=== PATIENT | male | born 1960 | race Caucasian/White ===

== ENCOUNTER 2023-05-13 13:47 | Outpatient (AMB) | payer MEDICARE, MEDICAID, SELFPAY ==
--- NOTE | 2023-05-13 14:17 | MHC.OFFVIS ---
Intake Intake Visit Reasons: specified disorders of prostate Intake Note: New Patient presents for initial visit for weak urinary stream and erectile dysfunction Urology Medications: tamsulosin Blood Thinner: aspirin PVR: 25ml's Print Producer Required: No Accompanied by: Self / Same As Patient Allergies No Known Allergies Allergy (Verified 05/13/23 15:23) Medication List - Last Reconciled 05/13/23 by JACQUES PetersenP- aspirin 81 mg PO DAILY atorvastatin 20 mg PO DAILY omeprazole 40 mg PO DAILY tadalafil 20 mg PO .prn PRN 30 days tamsulosin 0.4 mg PO DAILY 90 days HPI HPI Comments History of Present Illness Details Kali is a 62-year-old male patient. He has a past medical history of anxiety, hypercholesteremia, posterior circulation stroke, and cervical radiculopathy. He presents to the office today as a new patient for ongoing lower urinary tract symptoms. In discussion with the patient today he reports noting over the last 6 months to be having weak urinary stream and urinary hesitancy. He also discusses having had issues obtaining and maintaining erections. When asked he reports no sexual desire. Discussed at length potential causes of erectile dysfunction as well as lower urinary tract symptoms. He reports having followed up with his PCP at which time DUDLEY was performed and no abnormalities were noted and he was started on Flomax. He does report improvement in lower urinary tract symptoms symptoms on 0.4 mg of Flomax daily. When asked he denies incontinence, nocturia, hematuria, dysuria, foul smelling urine, flank pain, fever, and or chills. Discussed obtaining labs and retroperitoneal ultrasound for further assessment evaluation. He otherwise offers no other issues or concerns at time. 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 ENT Reports no additional complaints Card Reports as per HPI Resp Reports no additional complaints GI Reports no additional complaints Reports as per HPI Musc Reports as per HPI Neuro Reports as per HPI Psych Reports no additional complaints Endo Reports no additional complaints Master/Lymph Reports no additional complaints Aller/Immun Reports no additional complaints Physical Exam Const General: cooperative, healthy appearing, comfortable, no acute distress, well developed, alert and awake Orientation/consciousness: patient oriented x3 Limitations: no limitations HEENT Head: Yes normal to inspection, Yes normocephalic and Yes atraumatic Ears: hearing grossly normal bilaterally Eyes General: appearance normal, both eyes and all related structures Neck Neck: Yes normal visual inspection and Yes trachea midline Chest Chest palpation & inspection: normal inspection of the chest Resp Effort & Inspection: normal respiratory effort and able to speak in complete sentences Cardio Rate: regular rate GI Inspection: Yes normal to inspection General: Yes no CVA tenderness Back/Spine/Pelvis Back: no CVA tenderness Skin General skin exam: no rashes or lesions noted Neuro General: patient oriented x3 Extrem General: Yes normal to inspection Psych Appearance: grossly normal and well kempt Mental Status: mental status grossly normal Speech and movement: Normal speech and movement present and Clear speech present Affect: normal affect Attitude: cooperative Thought process: Normal thought process present Thought content: Normal thought content present Insight: Fair insight present (Psych) Judgement: Fair judgement present (Psych) Office Procedures Post Void Residual Post Residual Void Post Void Residual (PVR): 25 [id number] Void Residual by ultrasound Assessment & Plan Assessment & Plan (1) Lower urinary tract symptoms: Code(s): R39.9 - Unspecified symptoms and signs involving the genitourinary system (2) Erectile dysfunction: Code(s): N52.9 - Male erectile dysfunction, unspecified (3) Low libido: Code(s): R68.82 - Decreased libido Plan Unable to obtain urine for urinalysis today however PVR 25 mL. Continue Flomax as discussed and prescribed. Discussed obtaining retroperitoneal ultrasound for further assessment evaluation. Will obtain PSA for further assessment evaluation. Prescription provided for as needed Cialis Will obtain testosterone free and total for further assessment evaluation. Discussed at length lifestyle modifications to assist with lower urinary tract symptoms as well as erectile dysfunction. Follow-up in 2-3 months with imaging and labs to be completed prior; or sooner with any issues, concerns, and or questions. Orders: Orders US retroperitoneal comp Today R39.9 - Unspecified symptoms and signs involving the genitourinary system AMB Urinalysis Automated Today Z13.9 - Encounter for screening, unspecified AMB Post Void Residual by ultrasound Today Z13.9 - Encounter for screening, unspecified Prostate Specific Antigen Today N40.0 - Benign prostatic hyperplasia without lower urinary tract symptoms Testosterone, Free/Total Today N52.9 - Male erectile dysfunction, unspecified, R68.82 - Decreased libido Medications: New tamsulosin 0.4 mg PO DAILY 90 days 90 caps 0RF tadalafil Take 1 hour prior to sexual activity as needed 20 mg PO .prn 30 days PRN 10 tabs 2RF sexual activity Patient Instructions: The patient had an opportunity to ask questions regarding the treatment plan. All questions were answered. Physical exam, labs, and imaging were discussed and reviewed in detail. As well as risks, benefits, and discussion of treatment choices. No major barriers to understanding were identified. The patient expressed understanding and agreement with the above treatment plan. The patient was made aware they should contact our office by phone for worsening of their current condition, the appearance of new symptoms, or with any questions or concerns. Compliance is encouraged with any medications and follow up testing that is ordered. It is a privilege to be allowed the opportunity to participate in? your urological care.? Again, if you have any questions or concerns If you have any questions or concerns please do not hesitate to contact me. The office is [phone]. This note is constructed using voice recognition software. While every effort has been made to ensure accuracy firearms instructor errors may have been included. Yours sincerely, ARCELIA Petersen- Coding Level of Care Code New Pt Level 4 (25973) Diagnoses Lower urinary tract symptoms R39.9 Erectile dysfunction N52.9 Low libido R68.82 CPT Codes Post Residual Void - PVR CPT Code: 14953-Lxky Void Residual by ultrasound ([id number])
== END 2023-05-13 15:12 | disposition home or self-care (01) ==
PROVIDERS: Visit Provider Nurse Practitioner Family
DX: R39.9 Unspecified symptoms and signs involving the genitourinary system (principal); N52.9 Male erectile dysfunction, unspecified; R68.82 Decreased libido
CPT/HCPCS: 99204

== ENCOUNTER → 2023-05-13 13:47 | Outpatient (BNVA) | payer MEDICARE, MEDICAID, SELFPAY | PROVIDERS: Visit Provider Nurse Practitioner Family | DX: R39.9 Unspecified symptoms and signs involving the genitourinary system (principal); N52.9 Male erectile dysfunction, unspecified; R68.82 Decreased libido | CPT/HCPCS: 51798; 99202 ==

== ENCOUNTER 2023-06-15 07:52 | Outpatient (REF) | payer MEDICARE, MEDICAID, SELFPAY ==
[2023-06-15 11:17] LABS: Prostate Specific Antigen 0.37 ng/mL (<0.05-4.0)
[2023-06-19 14:19] LABS: Testosterone, Free 76.4 pg/mL (35.0-155.0); Testosterone, Total 583 ng/dL (250-1100)
== END 2023-06-15 07:53 | disposition home or self-care (01) ==
LOC: HO.10HDL 07:52
PROVIDERS: Visit Provider Nurse Practitioner Family
DX: Z12.5 Encounter for screening for malignant neoplasm of prostate (principal); N40.0 Benign prostatic hyperplasia without lower urinary tract symptoms; R68.82 Decreased libido; N52.9 Male erectile dysfunction, unspecified
CPT/HCPCS: 36415; 84153; 84402; 84403

== ENCOUNTER 2023-07-02 13:48 | Outpatient (REF) | payer MEDICARE, MEDICAID, SELFPAY ==
--- NOTE | ~2023-07-02 | US_ITS ---
EXAMINATION: US RETROPERITONEAL COMPLETE (RENAL) CLINICAL INFORMATION: Lower urinary tract symptoms. COMPARISON: None available. TECHNIQUE: Real-time imaging of the kidneys and bladder. FINDINGS: RIGHT KIDNEY: 11.8 x 4.8 x 3.3 cm (SAG x AP x TRV). The kidney is normal in size, contour, and echogenicity. Renal cortical thickness is normal. No calculi or focal parenchymal lesions. No hydronephrosis. LEFT KIDNEY: 11.5 x 5.4 x 4.8 cm (SAG x AP x TRV). The kidney is normal in size, contour, and echogenicity. Renal cortical thickness is normal. No calculi or focal parenchymal lesions. No hydronephrosis. BLADDER: Well distended and normal. Bilateral ureteral jets are demonstrated. Prevoid bladder volume is 248.2 mL. Postvoid bladder volume is 21.3 mL. ADDITIONAL FINDINGS: The prostate measures 33 mL. US/US retroperitoneal comp IMPRESSION: Enlarged prostate. Normal-appearing urinary bladder. No hydronephrosis.
== END 2023-07-02 13:49 | disposition home or self-care (01) ==
LOC: HO.US 13:48
PROVIDERS: Visit Provider Nurse Practitioner Family
DX: R39.9 Unspecified symptoms and signs involving the genitourinary system (principal)
CPT/HCPCS: 76770

== ENCOUNTER 2023-07-13 13:18 | Outpatient (AMB) | payer MEDICARE, MEDICAID, SELFPAY ==
--- NOTE | 2023-07-13 13:23 | MHC.OFFVIS ---
Intake Visit Reasons: 2m/US/labs(SET) Intake Note: Patient presents for follow up visit for weak urinary stream, erectile dysfunction, ultrasound and lab results Imagin07/02/23 Testosterone: 583, Free Testosterone: 76.4, PSA: 0.37 Urology Medications: tamsulosin and tadalafil Blood Thinner: aspirin PVR: 0ml's Ticket Collector Or Usher Required: No Accompanied by: Self / Same As Patient Allergies No Known Allergies Allergy (Verified 07/13/23 20:20) Medication List - Last Reconciled 07/13/23 by ARCELIA Petersen- aspirin 81 mg PO DAILY atorvastatin 20 mg PO DAILY omeprazole 40 mg PO DAILY tadalafil (Cialis) 5 mg PO DAILY 90 days tadalafil 10 - 20 mg (0.5 - 1 x 20 mg) PO .prn PRN 30 days HPI Comments Details: Kali is a 62-year-old male patient. He has a past medical history of anxiety, hypercholesteremia, posterior circulation stroke, memory difficulty, and cervical radiculopathy. He presents to the office today for follow-up. Of note, patient was seen approximately 2 months ago as a new patient for ongoing lower urinary tract symptoms and erectile dysfunction at which time a retroperitoneal ultrasound was ordered, labs, and trial of on demand Cialis with Flomax was initiated. In discussion with the patient today he reports to be doing and feeling well. He reports feeling since his last office visit here approximately 2 months ago he has not been experiencing lower urinary tract symptoms as he had been. He denies having trialed Cialis on demand for his ED as he spoke with his partner and she does not feel this is necessary. However, he does continue to report erectile dysfunction. Recent retroperitoneal ultrasound results reviewed with the patient today. Bilateral kidneys with no calculi, lesions, and or hydronephrosis. The bladder is well distended and normal. Bilateral ureteral jets are demonstrated. Pre void bladder volume is approximately 250 mL. Postvoid bladder volume is approximately 20 mL. The prostate measures approximately 33 mL. Recent testosterone, free testosterone, and PSA results reviewed with the patient today as noted and trended below: PSA 06/30 0.4 Total testosterone 06/30 583 Free testosterone 06/30 76.4 Although he had been reporting weak urinary stream and urinary hesitancy he reports this has since subsided. He currently denies any bothersome urinary issues or concerns. He denies urinary urgency, urinary frequency, incontinence, nocturia, hematuria, dysuria, foul smelling urine, changes to urinary stream, flank pain, fever, and or chills. He is happy with his current voiding parameters. In office urinalysis results reviewed with the patient today. PVR 0 mL. PFSH Medical History Memory difficulty Anxiety Hypercholesteremia Achalasia Posterior circulation stroke Cervical radiculopathy Surgical History History of arthroscopy History of back surgery Review of Systems Const Reports no additional complaints Eyes Details: 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 ENT Reports no additional complaints Card Reports as per HPI Resp Reports no additional complaints GI Reports no additional complaints Reports as per HPI Musc Reports as per HPI Neuro Reports as per HPI Psych Reports no additional complaints Endo Reports no additional complaints Master/Lymph Reports no additional complaints Aller/Immun Reports no additional complaints Physical Exam Const General: cooperative, healthy appearing, comfortable, no acute distress, well developed, alert and awake Orientation/consciousness: patient oriented x3 Limitations: no limitations HEENT Head: Yes normal to inspection, Yes normocephalic and Yes atraumatic Ears: hearing grossly normal bilaterally Eyes General: appearance normal, both eyes and all related structures Neck Neck: Yes normal visual inspection and Yes trachea midline Chest Chest palpation & inspection: normal inspection of the chest Resp Effort & Inspection: normal respiratory effort and able to speak in complete sentences Cardio Rate: regular rate GI Inspection: Yes normal to inspection General: Yes no CVA tenderness Back/Spine/Pelvis Back: no CVA tenderness Skin General skin exam: no rashes or lesions noted Neuro General: patient oriented x3 Extrem General: Yes normal to inspection Psych Appearance: grossly normal and well kempt Mental Status: mental status grossly normal Speech and movement: Normal speech and movement present and Clear speech present Affect: normal affect Attitude: cooperative Thought process: Normal thought process present Thought content: Normal thought content present Insight: Fair insight present (Psych) Judgement: Fair judgement present (Psych) Office Procedures Post Void Residual Post Residual Void Post Void Residual (PVR): 35 [id number] Void Residual by ultrasound Results AMB Urinalysis, Automated UA Leukoctes 0 Chuy/uL Last Edit by Shozunissa on 07/13/23 13:41 UA Nitrite Last Edit by Found[employer] on 07/13/23 13:41 UA Urobilinogen 0.2 mg/dL Last Edit by Songvicekatja LigerTailnissa on 07/13/23 13:41 UA Protein 0 mg/dL Last Edit by Shozunissa on 07/13/23 13:41 UA pH 6.0 Last Edit by [employer] on 07/13/23 13:41 UA Blood 0 Gabino/uL Last Edit by [employer] on 07/13/23 13:41 UA Specific [place] 1.015 Last Edit by [employer] on 07/13/23 13:41 UA Ketone Last Edit by [employer] on 07/13/23 13:41 UA Bilirubin 0 mg/dL Last Edit by Shozunissa on 07/13/23 13:41 UA Glucose 0 mg/dL Last Edit by [employer] on 07/13/23 13:41 Results Reviewed Results Reviewed: Laboratory Last Values Urine pH (Auto) 6.0 07/13/23 13:27 Specific [place] (Auto) 1.015 07/13/23 13:27 Urine Protein (Auto) 0 mg/dL 07/13/23 13:27 Glucose (UA)(Auto) 0 mg/dL 07/13/23 13:27 Urine Blood (Auto) 0 Gabino/uL 07/13/23 13:27 Urine Bilirubin (Auto) 0 mg/dL 07/13/23 13:27 Urine Urobilinogen (Auto) 0.2 mg/dL 07/13/23 13:27 Leukocyte Esterase (Auto) 0 Chuy/uL 07/13/23 13:27 Date of Service: 07/02/23 EXAMINATION: US RETROPERITONEAL COMPLETE (RENAL) FINDINGS: RIGHT KIDNEY: 11.8 x 4.8 x 3.3 cm (SAG x AP x TRV). The kidney is normal in size, contour, and echogenicity. Renal cortical thickness is normal. No calculi or focal parenchymal lesions. No hydronephrosis. LEFT KIDNEY: 11.5 x 5.4 x 4.8 cm (SAG x AP x TRV). The kidney is normal in size, contour, and echogenicity. Renal cortical thickness is normal. No calculi or focal parenchymal lesions. No hydronephrosis. BLADDER: Well distended and normal. Bilateral ureteral jets are demonstrated. Prevoid bladder volume is 248.2 mL. Postvoid bladder volume is 21.3 mL. ADDITIONAL FINDINGS: The prostate measures 33 mL. IMPRESSION: Enlarged prostate. Normal-appearing urinary bladder. No hydronephrosis. Assessment & Plan Assessment & Plan (1) Low libido: Code(s): R68.82 - Decreased libido Category: Medical (2) Erectile dysfunction: Code(s): N52.9 - Male erectile dysfunction, unspecified Category: Medical (3) Lower urinary tract symptoms: Code(s): R39.9 - Unspecified symptoms and signs involving the genitourinary system Category: Medical Plan In office urinalysis results reviewed with the patient today; as noted above. PVR 0 mL. Recent retroperitoneal ultrasound results reviewed with the patient today; as noted above. Recent testosterone, free testosterone, and PSA results reviewed with the patient today; as noted above. Start Cialis 5 mg daily. Discussed further treatment options for erectile dysfunction. He currently denies any bothersome urinary issues or concerns. Discussed at length potential causes for erectile dysfunction. Discussed lifestyle modifications to assist with the erectile dysfunction. Follow-up in 3 months; or sooner with any questions, concerns, and or issues. Orders: Orders AMB Urinalysis Automated Today Z13.9 - Encounter for screening, unspecified AMB Post Void Residual by ultrasound Today R39.9 - Unspecified symptoms and signs involving the genitourinary system Medications: New tadalafil (Cialis) [id number] [facility] [id number] Member [id number] 5 mg PO DAILY 90 tabs 0RF 90 days Changed From tadalafil Take 1 hour prior to sexual activity as needed 20 mg PO .prn PRN 10 tabs 2RF sexual activity 30 days To tadalafil Take 1 hour prior to sexual activity as needed [id number] [facility] [id number] Member [id number] 10 - 20 mg (0.5 - 1 x 20 mg) PO .prn PRN 10 tabs 2RF sexual activity 30 days Discontinued tamsulosin Discontinued Reason: Doctor's Order 0.4 mg PO DAILY 90 caps 0RF 90 days Patient Instructions: The patient had an opportunity to ask questions regarding the treatment plan. All questions were answered. Physical exam, labs, and imaging were discussed and reviewed in detail. As well as risks, benefits, and discussion of treatment choices. No major barriers to understanding were identified. The patient expressed understanding and agreement with the above treatment plan. The patient was made aware they should contact our office by phone for worsening of their current condition, the appearance of new symptoms, or with any questions or concerns. Compliance is encouraged with any medications and follow up testing that is ordered. It is a privilege to be allowed the opportunity to participate in? your urological care.? Again, if you have any questions or concerns If you have any questions or concerns please do not hesitate to contact me. The office is [phone]. This note is constructed using voice recognition software. While every effort has been made to ensure accuracy broadcast field supervisor errors may have been included. Yours sincerely, JESSE Petersen Coding Level of Care Code Est Pt Level 4 (70170) Diagnoses Low libido R68.82 Erectile dysfunction N52.9 Lower urinary tract symptoms R39.9 CPT Codes Post Residual Void - PVR CPT Code: 48417-Vnvq Void Residual by ultrasound ([id number])
== END 2023-07-13 13:55 | disposition home or self-care (01) ==
PROVIDERS: Visit Provider Nurse Practitioner Family
DX: R68.82 Decreased libido (principal); N52.9 Male erectile dysfunction, unspecified; R39.9 Unspecified symptoms and signs involving the genitourinary system
CPT/HCPCS: 99214

== ENCOUNTER → 2023-07-13 13:18 | Outpatient (BNVA) | payer MEDICARE, MEDICAID, SELFPAY | PROVIDERS: Visit Provider Nurse Practitioner Family | DX: R68.82 Decreased libido (principal); R39.9 Unspecified symptoms and signs involving the genitourinary system; N52.9 Male erectile dysfunction, unspecified | CPT/HCPCS: 51798; 81003; 99212 ==

== ENCOUNTER 2023-10-13 12:09 | Outpatient (AMB) | payer MEDICARE, MEDICAID, SELFPAY ==
--- NOTE | 2023-10-13 13:05 | A.OFFVIS_ITS ---
Intake Visit Reasons: 3m follow up Intake Note: Patient presents for follow up visit for 3m f/u Urology Medications:tadalafil Blood Thinner: aspirin allergies: none Cellular Biologist Required: No Accompanied by: Self / Same As Patient Allergies No Known Allergies Allergy (Verified 10/13/23 14:03) Medication List - Last Reconciled 10/13/23 by JESSE Petersen aspirin 81 mg PO DAILY atorvastatin 20 mg PO DAILY omeprazole 40 mg PO DAILY tadalafil (Cialis) 5 mg PO DAILY 90 days tadalafil 10 - 20 mg (0.5 - 1 x 20 mg) PO .prn PRN 30 days HPI Comments Details: Kali is a 63-year-old male patient. He has a past medical history of anxiety, hypercholesteremia, posterior circulation stroke, memory difficulty, and cervical radiculopathy. He presents to the office today for follow-up of his lower urinary tract symptoms and erectile dysfunction. In discussion with the patient today he reports since his last office visit here 3 months ago he has been doing and feeling well. He denies having had any bothersome urinary issues or concerns. He reports feeling daily dosing of tadalafil as well as p.r.n. dosing prior to sexual activity have been significantly helpful in maintaining his erections. Previous workup has included a retroperitoneal ultrasound noting bilateral kidneys with no calculi, lesions, and or hydronephrosis The bladder is well distended and normal. Bilateral ureteral jets are demonstrated. Pre void bladder volume is approximately 250 mL. Postvoid bladder volume is approximately 20 mL. The prostate measures approximately 33 mL. Previous labs included testosterone, free testosterone, and PSA as noted and trended below: PSA 06/30 0.4 Total testosterone 06/30 583 Free testosterone 06/30 76.4 He currently denies any bothersome urinary issues or concerns. He denies urinary urgency, urinary frequency, incontinence, nocturia, hematuria, dysuria, foul smelling urine, changes to urinary stream, flank pain, fever, and or chills. He is happy with his current voiding parameters. In office urinalysis results reviewed with the patient today. He otherwise offers no other issues or concerns at this time. 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 ENT Reports no additional complaints Card Reports as per HPI Resp Reports no additional complaints GI Reports no additional complaints Reports as per HPI Musc Reports as per HPI Neuro Reports as per HPI Psych Reports no additional complaints Endo Reports no additional complaints Master/Lymph Reports no additional complaints Aller/Immun Reports no additional complaints Physical Exam Const General: cooperative, healthy appearing, comfortable, no acute distress, well developed, alert and awake Orientation/consciousness: patient oriented x3 Limitations: no limitations HEENT Head: Yes normal to inspection, Yes normocephalic and Yes atraumatic Ears: hearing grossly normal bilaterally Eyes General: appearance normal, both eyes and all related structures Neck Neck: Yes normal visual inspection and Yes trachea midline Chest Chest palpation & inspection: normal inspection of the chest Resp Effort & Inspection: normal respiratory effort and able to speak in complete sentences Cardio Rate: regular rate GI Inspection: Yes normal to inspection General: Yes no CVA tenderness Back/Spine/Pelvis Back: no CVA tenderness Skin General skin exam: no rashes or lesions noted Neuro General: patient oriented x3 Extrem General: Yes normal to inspection Psych Appearance: grossly normal and well kempt Mental Status: mental status grossly normal Speech and movement: Normal speech and movement present and Clear speech present Affect: normal affect Attitude: cooperative Thought process: Normal thought process present Thought content: Normal thought content present Insight: Fair insight present (Psych) Judgement: Fair judgement present (Psych) Results AMB Urinalysis, Automated UA Leukoctes 0 Chuy/uL Last Edit by AREN Knowles on 10/13/23 13:19 UA Nitrite Negative Last Edit by AREN Knowles on 10/13/23 13:19 UA Urobilinogen 0.2 mg/dL Last Edit by AREN Knowles on 10/13/23 13:1 9 UA Protein 0 mg/dL Last Edit by AREN Knowles on 10/13/23 13:19 UA pH 6.0 Last Edit by AREN Knowles on 10/13/23 13:19 UA Blood 0 Gabino/uL Last Edit by AREN Knowles on 10/13/23 13:19 UA Specific Badin 1.010 Last Edit by AREN Knowles on 10/13/23 13: 19 UA Ketone Negative Last Edit by AREN Knowles on 10/13/23 13:19 UA Bilirubin 0 mg/dL Last Edit by AREN Knowles on 10/13/23 13:19 UA Glucose 0 mg/dL Last Edit by AREN Knowles on 10/13/23 13:19 Results Reviewed Results Reviewed: Laboratory Last Values Urine pH (Auto) 6.0 10/13/23 13:18 Specific Badin (Auto) 1.010 10/13/23 13:18 Urine Protein (Auto) 0 mg/dL 10/13/23 13:18 Glucose (UA)(Auto) 0 mg/dL 10/13/23 13:18 Urine Ketones (Auto) Negative 10/13/23 13:18 Urine Blood (Auto) 0 Gabino/uL 10/13/23 13:18 Urine Nitrite (Auto) Negative 10/13/23 13:18 Urine Bilirubin (Auto) 0 mg/dL 10/13/23 13:18 Urine Urobilinogen (Auto) 0.2 mg/dL 10/13/23 13:18 Leukocyte Esterase (Auto) 0 Chuy/uL 10/13/23 13:18 Assessment & Plan Assessment & Plan (1) Low libido: Code(s): R68.82 - Decreased libido Category: Medical (2) Erectile dysfunction: Code(s): N52.9 - Male erectile dysfunction, unspecified Category: Medical (3) Lower urinary tract symptoms: Code(s): R39.9 - Unspecified symptoms and signs involving the genitourinary system Category: Medical Plan In office urinalysis results reviewed with the patient today; as noted above. Continue Cialis as discussed and prescribed; refill provided. Discussed lifestyle modifications to assist with erectile dysfunction Discussed further treatment options for erectile dysfunction. He currently denies any bothersome urinary issues or concerns. Discussed at length potential causes for erectile dysfunction. Patient denies any bothersome urinary issues. He reports be happy with current voiding parameters. Follow-up in 6 months; or sooner with any questions, concerns, and or issues. Orders: Orders AMB Urinalysis Automated Today Z13.9 - Encounter for screening, unspecified Medications: [id number] 5 mg PO DAILY 90 tabs 2RF 90 days tadalafil Take 1 hour prior to sexual activity as needed [id number] [facility] [id number] 10 - 20 mg (0.5 - 1 x 20 mg) PO .prn PRN 10 tabs 6RF sexual activity 30 days Patient Instructions: The patient had an opportunity to ask questions regarding the treatment plan. All questions were answered. Physical exam, labs, and imaging were discussed and reviewed in detail. As well as risks, benefits, and discussion of treatment choices. No major barriers to understanding were identified. The patient expressed understanding and agreement with the above treatment plan. The patient was made aware they should contact our office by phone for worsening of their current condition, the appearance of new symptoms, or with any questions or concerns. Compliance is encouraged with any medications and follow up testing that is ordered. It is a privilege to be allowed the opportunity to participate in? your urological care.? Again, if you have any questions or concerns If you have any questions or concerns please do not hesitate to contact me. The office is [phone]. This note is constructed using voice recognition software. While every effort has been made to ensure accuracy independent jeweler errors may have been included. Yours sincerely, JESSE Petersen Coding Level of Care Code Est Pt Level 3 (52436) Diagnoses Low libido R68.82 Erectile dysfunction N52.9 Lower urinary tract symptoms R39.9
== END 2023-10-13 13:35 | disposition home or self-care (01) ==
LOC: HO.HUSH 12:09
PROVIDERS: Visit Provider Nurse Practitioner Family
DX: R68.82 Decreased libido (principal); N52.9 Male erectile dysfunction, unspecified; R39.9 Unspecified symptoms and signs involving the genitourinary system; Z13.9 Encounter for screening, unspecified
CPT/HCPCS: 99213

== ENCOUNTER → 2023-10-13 12:09 | Outpatient (BNVA) | payer MEDICARE, MEDICAID, SELFPAY | PROVIDERS: Visit Provider Nurse Practitioner Family | DX: R68.82 Decreased libido (principal); N52.9 Male erectile dysfunction, unspecified; R39.9 Unspecified symptoms and signs involving the genitourinary system; Z79.899 Other long term (current) drug therapy | CPT/HCPCS: 81003; 99212 ==

== ENCOUNTER → 2024-04-14 13:38 | Outpatient (BNVA) | payer MEDICARE, SELFPAY | PROVIDERS: Visit Provider Nurse Practitioner Family ==

== ENCOUNTER 2024-07-12 17:18 | Inpatient (IN) | payer MEDICARE, SELFPAY ==
[2024-07-12] VITALS (13 sets, daily range): BP systolic 44–191; BP diastolic 30–89; PULSE 70–142; RESP 14–22; TEMP 36.6–37; O2SAT 92–98; BMI 27.2
--- NOTE | ~2024-07-12 | CT_ITS ---
CLINICAL HISTORY: esophageal narrowing. food bolus CT chest without contrast Comparison: None Findings: Moderately dilated esophagus up to the level of the GE junction with hyperdense material likely representing barium from recent swallow study. Apparent narrowing of the GE junction is seen. Mild cardiomegaly. Small bilateral pleural effusions. Bibasilar associated atelectatic changes. The visualized upper abdomen is unremarkable. The bones are intact. IMPRESSION: 1. Moderately dilated esophagus with hyperdense material likely representing barium from recent swallow study. Apparent narrowing of the GE junction. Findings could represent distal esophageal narrowing or achalasia. Correlate clinically. 2. Mild cardiomegaly and small bilateral pleural effusions. This document has been electronically signed by: Sorin Underwood MD on 07/12/2024 20:12:32
--- NOTE | ~2024-07-12 | CT_ITS ---
CLINICAL HISTORY: esophageal narrowing pmh of stricture CT abdomen and pelvis without contrast Comparison: None Findings: No consolidation or effusion. Unremarkable gallbladder and solid organs. No urolithiasis. No bowel obstruction, pneumoperitoneum, or pneumatosis. Pelvic contents unremarkable. Normal appendix. The bones are intact. IMPRESSION: No acute findings. Correlate with concurrent CT chest for the findings above the diaphragm. This document has been electronically signed by: Sorin Underwood MD on 07/12/2024 20:22:15
--- NOTE | ~2024-07-12 | US_ITS ---
CLINICAL HISTORY: new edema R > L Venous duplex ultrasound bilateral lower extremity Comparison: None Findings: The visualized deep veins are fully compressible with normal Doppler color flow and spectral tracings. No popliteal cyst. Reactive bilateral groin lymph nodes are incidental. Subcutaneous edema of both legs, slightly more prominent on the right. IMPRESSION: 1. Negative for bilateral lower extremity deep vein thrombosis. This document has been electronically signed by: Ronaldo Tiwari MD on 07/13/2024 02:47:21
--- NOTE | 2024-07-12 17:46 | ECG_ITS ---
Test Reason : CHEST PAIN Blood Pressure : */* mmHG Vent. Rate : 133 BPM Atrial Rate : * BPM P-R Int : * ms QRS Dur : 94 ms QT Int : 274 ms P-R-T Axes : * 17 66 degrees QTcB Int : 407 ms Atrial fibrillation with rapid ventricular response Nonspecific T wave abnormality Abnormal ECG No previous ECGs available Referred By: Zheng Fam Electronically Signed By: LY POSADAS
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
[2024-07-12 18:06] LABS: MANUAL DIFF FLAG NO
[2024-07-12 18:08] LABS: Basophils Percent Auto 0.5 % (0-2); Eosinophils Absolute Auto 0.1 X10*3/uL (0.0-0.4); Eosinophils Percent Auto 1.5 % (0-4); Hematocrit 41.8 % (42.0-52.0); Hemoglobin 14.1 g/dl (14.0-18.0); Imm Gran Abs Auto 0.01 X10*3/uL (0.00-0.03); Imm Gran Pct Auto 0.2 % (0.0-0.4); Lymphocytes Absolute Auto 1.1 X10*3/uL (1.2-4.9); Lymphocytes Percent Auto 18.5 % (20-40); Mean Corpuscular HGB Conc 33.7 g/dl (31.0-36.0); Mean Corpuscular Hemoglobin 31.2 pg (27.0-33.0); Mean Corpuscular Volume 92.5 fL (80.0-98.0); Mean Platelet Volume 12.1 fL (9.4-12.4); Monocytes Absolute Auto 0.4 X10*3/uL (0.1-1.2); Monocytes Percent Auto 6.5 % (2-11); Neutrophils Absolute Auto 4.2 x10*3/uL (2.0-8.3); Neutrophils Percent Auto 72.8 % (45-73); Platelet Count 124 X10*3/uL (160-400); Red Blood Count 4.52 X10*6/uL (4.60-5.80); Red Cell Distribution Width 14.1 % (11.0-16.0); White Blood Count 5.8 X10*3/uL (4.8-10.8)
[2024-07-12 18:16] LABS: Partial Thromboplastin Time 28.6 SEC (26.0-36.8)
[2024-07-12 18:34] LABS: Troponin-I High Sensitivity 19.7 ng/L (<3.5-35.0)
[2024-07-12 18:38] LABS: Alanine Aminotransferase 46 U/L (0-40); Albumin Level 4.2 g/dL (3.5-5.0); Alkaline Phosphatase 71 U/L (39-117); Anion Gap 13 (12-20); Aspartate Amino Transferase 40 U/L (5-37); Bilirubin Total 2.3 mg/dL (0.0-1.0); Blood Urea Nitrogen 21 mg/dL (9-16); Calcium 9.1 mg/dL (8.4-10.2); Carbon Dioxide 25 mmol/L (22-29); Chloride 108 mmol/L (96-108); Creatinine Clr Calc Pharmacy 71.7; Estimated Glomerular Filt Rate 57; Glucose Random 103 mg/dL (60-115); Lipase 27 U/L (8-78); Potassium 4.7 mmol/L (3.3-5.1); Sodium 141 mmol/L (135-145); Total Protein 6.7 g/dL (6.5-8.0)
[2024-07-12 19:46] LABS: B Type Natriuretic Peptide 726 pg/mL (<100)
[2024-07-12] MEDS: glucagon HCL 1 MG VIAL IVPUSH (21:13)
[2024-07-12] MEDS: 0.9 % Sodium Chloride 1,000 ML 999 ML IV (21:13)
--- NOTE | 2024-07-12 21:33 | PC.NURSE ---
pt moved into ed22 has ekg showed afib. placed on teletypesetter monitor rate 120s-140s. pt denies cp/sob. pt denies hx of afib, not on meds/anticoags. aware.
[2024-07-12] MEDS: dilTIAZem HCL 50 MG/10 ML VIAL 20 MG IVPUSH (21:47)
[2024-07-12] MEDS: Pantoprazole Sodium 40 MG/10 ML VIAL IVPUSH (22:08)
--- NOTE | 2024-07-12 22:36 | PHA.MEDREC ---
Addendum entered by Lyndsey Ryan RPh 07/12/24 22:40: REVIEWED BY [facility] Original Note: Pharmacy Consult ? Medication Reconciliation Pharmacy has completed the medication reconciliation. Spoke with maulik and he was a little anxious but was able to confirm his medications. Patient confirmed he is taking Atorvastatin 20mg once daily and stated he gets them filled at [facility] on [address] I called [facility] on [facility] in [place] (since they are [address] [facility] [address] was already closed) and they were able to see and confirm the patient last picked the Atorvastatin 20mg tab up at a [facility] on 08/09/2023 for 90 days.
--- NOTE | 2024-07-12 22:43 | P.HPHOSP_ITS ---
History of Present Illness Date of Service: 07/12/24 Chief Complaint: SOB This is a 64-year-old male with pertinent history of achalasia status post dilatation, BPH, mixed hyperlipidemia, history of CVA who presents to the emergency department for evaluation of difficulty swallowing and shortness of breath. Patient states he presented today as he had difficulty breathing specially when lying flat or sleeping. No history of CHF as per the patient. Does complain of bilateral lower extremity leg swelling. Patient also noticed that has heart was racing on the day of presentation. This has also never happened before and he has no history of irregular heart rhythm that he knows of. Patient states he has been having difficulty with swallowing both solids and liquids that has been ongoing for the past 1-1/2-2 months. This has happened before and he has required dilatation in the past. He is unable to tolerate p.o. intake due to difficulty swallowing. No pain while swallowing. No fever, chills, chest pain, abdominal pain, changes in urinary or bowel habits. In the emergency department, imaging with cardiomegaly and bilateral pleural effusions. Patient was found to be in AFib with RVR with heart rate in the 140s. BNP found to be elevated. Also imaging with moderately dilated esophagus with findings of distal esophageal narrowing/achalasia. Review of Systems 2 Constitutional: Constitutional: Reports poor appetite ENT: Reports dysphagia Cardiovascular: Cardiovascular: Reports rapid heart rate, Reports dyspnea on exertion, Reports orthopnea and Reports paroxysmal nocturnal dyspnea Respiratory: Respiratory: Reports dyspnea on exertion Gastrointestinal: Gastrointestinal: Reports dysphagia Genitourinary: Genitourinary: Reports no additional male genitourinary complaints [facility] Medical History Memory difficulty Anxiety Hypercholesteremia Achalasia Posterior circulation stroke Cervical radiculopathy Pertinent family history: No family history of early CAD Surgical History History of arthroscopy History of back surgery Social History Advance Directives: No Advance Directives Information Provided: Yes Meds Allergies Allergy/AdvReac Type Severity Reaction Status Date / Time No Known Allergies Allergy Verified 07/12/24 17:43 Active Medications: Current Medications Diltiazem HCl 125 mg/ Sodium (Chloride) 125 mls @ 0 mls/hr IVCONT .Q0M ERNESTO; Protocol Home Medications ?Medication ?Instructions ?Recorded ?Confirmed ?Last Taken ?Type atorvastatin 20 mg tablet 20 mg PO DAILY 05/12/23 07/12/24 07/11/24 History Physical Exam 2 Vital Signs and Narrative: Vital Signs: Last Vital Signs Temp 97.9 F 07/12/24 20:59 Pulse 86 07/12/24 22:09 Resp 16 07/12/24 22:09 BP 116/81 07/12/24 22:09 Pulse Ox 98 07/12/24 22:09 O2 Del Method Room Air 07/12/24 22:09 BMI result Body Mass Index 27.2 Middle-aged male lying in bed in mild distress Neck supple Irregularly irregular, S1-S2 heard Bilateral crackles heard Abdomen soft nontender, no guarding, no rigidity Patient is awake, alert and oriented to self, place, time and person ; no focal motor deficit Psych: Normal mood Bilateral pedal edema Results Labs 07/12/24 18:03 07/12/24 18:03 Labs: Laboratory Results - last 24 hr 07/12/24 18:03 MCV 92.5 MCH 31.2 MCHC 33.7 RDW 14.1 Plt Count 124 L MPV 12.1 Immature Gran % (Auto) 0.2 Neut % (Auto) 72.8 Lymph % (Auto) 18.5 L [place] % (Auto) 6.5 Eos % (Auto) 1.5 Baso % (Auto) 0.5 Lymph # (Auto) 1.1 L [place] # (Auto) 0.4 Eos # (Auto) 0.1 Baso # (Auto) 0.0 Abs Immat Gran (auto) 0.01 Absolute Neuts (auto) 4.2 Absolute Nucleated RBC 0.000 Nucleated RBC % (auto) 0.0 APTT 28.6 Anion Gap 13 Estim Creat Clear Calc 71.7 Estimated GFR 57 Random Glucose 103 Calcium 9.1 Total Bilirubin 2.3 H AST 40 H ALT 46 H Alkaline Phosphatase 71 B-Natriuretic Peptide 726 H Total Protein 6.7 Albumin 4.2 Lipase 27 Assessment and Plan (1) Atrial fibrillation with rapid ventricular response: Status: Acute (2) Achalasia, esophageal: Status: Acute (3) Congestive heart failure: Status: Acute Plan This is a 64-year-old male with pertinent history of achalasia status post dilatation, BPH, mixed hyperlipidemia, history of CVA who presents to the emergency department for evaluation of difficulty swallowing and shortness of breath. #. AFib with RVR, new onset: Will admit patient with cardiac monitoring. Initiated on IV diltiazem drip in the ER. Obtaining TSH. Consulted Cardiology and obtaining echo. Chads Vasc score 2. Hold anticoagulation until GI evaluation #. Acute decompensated congestive heart failure, unknown EF: Initiating IV diuresis. Strict I's and O's. Low-salt diet. Echo and cardiology as above #. Dysphagia: Imaging concerning for distal esophageal narrowing/achalasia. Consulted Gastroenterology, appreciate assistance. Will keep patient NPO #. Mixed hyperlipidemia/ History of CVA: Resume statin once able to take p.o. Not on antiplatelet agent #. BPH: On Flomax Med rec pending DVT prophylaxis: Hold anticoagulation until GI evaluation Full code. Discussed with patient at bedside Admit as inpatient and will require two night minimum hospital stay for IV diuresis, monitoring of heart rate, evaluation management of dysphagia (as above), which is not possible in a lesser acute setting. Cardiology and GI consult pending Quality Stroke Does the patient have a stroke diagnosis?: No VTE Prior VTE?: No VTE Risk Level:: Medical - moderate - high VTE Device Contraindication: N/A - Device Ordered VTE Drug Contraindication: Treatment Not Indicated
--- NOTE | 2024-07-12 23:17 | ECG_ITS ---
Test Reason : HYPOTENSION Blood Pressure : */* mmHG Vent. Rate : 53 BPM Atrial Rate : * BPM P-R Int : * ms QRS Dur : 92 ms QT Int : 494 ms P-R-T Axes : * 34 -12 degrees QTcB Int : 463 ms Atrial fibrillation with slow ventricular response Nonspecific ST and T wave abnormality Abnormal ECG When compared with ECG of 12-Jul-2024 17:53, Vent. rate has decreased by 80 bpm Non-specific change in ST segment in Anterior leads T wave inversion now evident in Anterior leads Referred By: Rony Gibson Electronically Signed By: LY POSADAS
[2024-07-12] MEDS: Norepinephrine Bitartrate/D5W 8 MG/250 ML PLAST..BAG 9.51 MG IVCONT (23:30)
--- NOTE | 2024-07-12 23:30 | PC.NURSE ---
Addendum entered by Adiel Mendieta 07/12/24 23:45: BP 85/61, HR 88. levophed titrated up to 0.09mcg/kg/min. Original Note: entered room at 2305, pt at baseline, HR in 90s-105 BPM on monitor, speaking full clear sentences. this RN return to room approx 2312, second iv 20 L. forearm established. pt then reporting slight sob, nausea. BP checked and noted to be 72/30, HR 66BPM. pt became diaphoretic. MD Burroughs made aware and coming to bedside. pt remains axox4 responsive. repeat ekg obtained. pacer pads placed on pt. code cart in room. 3rd iv established 18 RAC. slightly cyanotic, sats 95% on RA, placed on 2L NC. 2330, levophed started per MD Burroughs verbal order. manual BP obtained 72/42. 2335 delay in titration as monitor not reading BP, difficulty obtaining manual BP. 2340. levophed titrated to 0.07mcg/kg/min, manual bp 58/32.
--- NOTE | 2024-07-12 23:36 | PM.EVENT ---
Event Note Date of Service: 07/13/24 Event Note: Patient received IV dilt push by ER provider at 2147. Patient continued to be in AFib with RVR with blood pressure being stable. Plan was to initiate patient on IV diltiazem drip and give 1 dose of IV Lasix. Before IV diltiazem or IV diuresis could be initiated, around 23:14 the nurse reported that the patient's blood pressure was 72/30. Blood pressure rechecked in both arms and a manual blood pressure was taken as well. Patient continued to be hypotensive. Patient already received 1 L crystalloid bolus upon arrival, unable to give more fluids as he does have orthopnea, PND and imaging with cardiomegaly and bilateral pleural effusions. Also BNP elevated. Discussed with gas plumbing inspector, Dr. Magaña and initiated patient on IV Levophed. Also ordered 1 dose of therapeutic Lovenox. Time Spent With Patient Time: Total time managing care of this patient today ____ minutes.
--- NOTE | 2024-07-12 23:47 | PC.NURSE ---
levophed titrated down to 0.05mcg/kg/min per [facility] PA.
[2024-07-12 23:48] LABS: Glucose, Whole Blood 131 mg/dL (60-115)
--- NOTE | 2024-07-12 23:59 | P.PNCC_ITS ---
Critical Care Event Note Summary Date of Service: 07/13/24 Code activated: No Narrative: This case had a high probability of a clinically significant, sudden, or life threatening deterioration of this patient's condition which required my full and direct attention, intervention and personal management. Critical Care Time (minutes): 60 Comment: Clinical Presentation: Requested to see patient initially admitted to the IM service. ?64-year-old patient with underlying history of syncopal episode, CVA (2014) without residual hemiparesis or deficits, BPH, erectile dysfunction, dysphagia due to achalasia and esophageal stricture status post dilatation about 4 years ago we recurrent symptoms over the last couple of days.? Patient presented to the emergency room with complaints of recurrent dysphagia for the past several months, generalized malaise, nausea and vomiting as he has a sensation of fullness shortly after trying to eat or drink anything, significant acid reflux regurgitation, shortness of breath and heart palpitations.? He denies any prior history of CHF, no history of heart attacks or arrhythmias. In the emergency room, initially the patient was normotensive and was not tachycardic but became tachycardic around 09:00 at night.? His laboratory workup was overall unremarkable with the exception of BNP of 726.?Total bilirubin 2.3.?Normal chemistry and LFTs.? Normal lipase.? An EKG revealed atrial fibrillation with rapid ventricular response with heart rate in the 130s, no ST elevations or depressions.?No comparison available.?She is on abdomen CT overall revealed moderate dilation of the esophagus with hyperdense material likely barium from recent swallow study.? Apparent narrowing of the GE junction .?Findings probably related to distal esophageal narrowing or achalasia.? Mild cardiomegaly and small bilateral pleural effusions. The patient had been admitted to the internal medicine service and was boarding in the emergency room, he received 1 L of IV fluids, but given his atrial fibrillation with rapid ventricular response the patient received 20 mg of IV Cardizem push, couple hours later the patient became hypotensive, states that he felt as if he was going to pass out becoming diaphoretic. ?There was a concern the patient was not CHF and Lasix was ordered but not given due to hypotension, instead the patient was started on vasopressors (Levophed).? His heart rate came down on its own and during my encounter is 80 to 90s.? Patient feeling much better and denies chest pain, arm or joint involvement.? Furthermore denies any fever or chills, no cough or sputum production.? Admits to all the above symptoms but denies other symptoms as described in the review of systems. ?It is likely that the patient's low blood pressures due to Cardizem side effect, it is also likely that his blood pressure could improve with albumin while achieving control with digoxin to improve cardiac output. ?We will discuss the case with Dr. Magaña? and RN switchboard operator supervisor for bed availability unlikely transfer the patient to ICU for hemodynamic support and rate control. Review of systems: As above, otherwise the patient denies any prior history seizures, migraine headaches, head trauma, no eyes, ears or nose problems, no thyroid disease, denies any history of coronary disease, cough, sputum production, pneumonia, bronchitis, COPD or emphysema, who was a smoker for about 10 years and quit 10 years ago.? Denies ?abdominal pain, admits to regurgitation and stomach burning sensation, inability to swallow properly for the past several months, no melena, hematochezia, hematemesis, hematuria, kidney stones, liver problems, immunocompromise state of any kind, no history of DVT or PE. ?Did not notice he had swelling of the legs until seen by the ER doctor.? Denies recent traveling, no contact with people who had contiguous diseases.? Other review of systems as above the remainder negative. Physical Exam: VS: 101/81, 94, 22, 96% 2 L nasal cannula, 97.8 (on levophed not on Cardizem gtt) General:? Alert oriented x3 no acute distress. No accessory muscle usage.? Following all commands. Speech is normal and coherent. Skin:? Thin, Intact, no lesions, edema, erythema, clubbing or cyanosis.? No ulcers. HEENT:? Head is normocephalic, atraumatic, pupils equal. Buccal mucosa is dry Neck is supple without lymphadenopathy. Cardiac:? Irregularly irregular 80-90 beats per minute.? No rubs, murmurs or gallops.? No JVD. Pulmonary: Clear lung sounds bilaterally. No crackles, rales or rhonchi. Abdomen:? Protuberant, positive bowel sounds in all 4 quadrants.? Soft, nontender, no rebound or guarding.? Musculoskeletal:? Moving all 4 extremities upon request a major joints, there is no crepitus or tenderness.? The strength is 5/5 bilaterally and throughout all 4 extremities.? There is 1+ pitting edema up to mid tibia right more than left, no calf tenderness. Neurologic:? As above.?No focal deficits noted. Vascular:? 2+ pulses upper and lower extremities distally.? Less than 2nd capillary refill of fingers and toes bilaterally upper and lower extremities ASSESSMENT : 1. Acute atrial fibrillation with rapid ventricular response (now rate controlled) rule out sinus node dysfunction, Thyroid issues, heart failure, valve disease, sleep apnea 2. Dysphagia /GERD / history of achalasia status post dilation in need of Re eval 3. Lower extremity edema could be related to poor nutrition and is likely to diastolic heart failure 4. Hypotensive due rapid AFib and Cardizem side effect (mild dehydration) 5. Shortness of breath likely related to his arrhythmia, I do not think he is in an acute CHF exacerbation 6. History of CVA without residual effects (2014) 7. Near-syncope episode likely due to 1.? Rule out ACS 8. Hyperbilirubinemia 9. Chronic acid reflux in the setting of 2. 10. Hyperbilirubinemia (no CBD obstruction, no evidence of anemia, no liver disease, no jaundice, the patient is not a drinker, very unlikely Gilbert's syndrome) PLAN OF CARE: Currently the patient's heart rate is between 80 and 90, still irregular, his blood pressure on Levophed at 0.05 mcg/kg/min is 95/62; will monitor vital signs, I's and O's. The patient is voiding without diuretics and has gone to the bathroom a few times in the ER. Lasix naive, hold off on diuretics. ?Will attempt increasing oncotic pressure with albumin while giving him digoxin (normal renal function) to control heart rate and increase cardiac output thus increasing his blood pressure. I am not convinced that the patient is fluid overloaded for his lung sounds are clear and chest x-ray does not show overt heart failure, BNP is not significantly elevated although it is not with the normal. Check TSH and free T3, T4 levels, echocardiogram, GI and cardiology consult has been requested by internal medicine physician.? If his heart rate does not improve with digoxin we will place him on Cardizem drip while supporting him with pressors. The patient's CHADS-VASc score is 4-5 as it is unclear if he has congestive heart failure.? Nevertheless the patient should be anticoagulated for stroke prevention. I will place him on full-dose Lovenox for now and discuss further anticoagulation with Cardiology in the morning. ?I will hold off on diuretics for now. Ultrasound bilateral lower extremities rule out DVT. GI PROPHYLAXIS:? IV PPI DVT PROPHYLAXIS:? Lovenox 1 milligram/kilogram subQ q.12 hours 645 am Clinical update: VS 106/68, 70-80 irregular, 12, 98% 2 L nasal cannula. Patient has been off Levophed and Cardizem drip since 05:25. Even though his heart rate does fluctuate, it is not going above 90-100 beats per minute with a good blood pressure and a map of 78. The patient is voiding on his own. We will discuss further management with Dr. Magaña. Morning laboratories reviewed, his phosphorus is slightly low but the patient is NPO. No need for IV replacement at this point. Monitor plts. Critical care time used for critical evaluation of this patient, diagnosis, treatment and coordination of care, review her records and documentation TOTAL CRITICAL CARE TIME? 60 MIN . discussion and coordination with consultants, completely separate from any procedures performed. Patient's care was discussed in detail with Dr. Magaña who is aware of all the above as well as the plan of care for this patient.
[2024-07-13] VITALS (27 sets, daily range): BP systolic 92–124; BP diastolic 62–93; PULSE 60–120; RESP 11–26; TEMP 36.1–36.6; O2SAT 91–97; BMI 27.4
--- OUTSIDE RECORDS SUMMARY | 2024-07-13 00:02 | XMS_ITS | Clinical Summary ---
Author Organization [facility] it Address [address] [place] [address] Care Team Providers Care Account Executive Sales Representative Name Role Phone Wu Underwood MD Primary Care Provider [phone] Allergies No known active allergies Medications aspirin 81 mg EC tablet Take 1 Tab by mouth daily. 04/05/2019 Active atorvastatin (LIPITOR) 20 mg tablet Take 1 Tablet by mouth daily. 05/12/2023 Active omeprazole (PriLOSEC) [address] capsule Take 1 capsule by mouth daily. 03/04/2021 Active tamsulosin (FLOMAX) 0.4 mg 24 hr capsule Take 1 Capsule by mouth daily. Take 30 mins after same meal every day. 07/28/2023 Active Active Problems Problem Noted Date Diagnosed Date Cervical radiculopathy 08/13/2018 Posterior circulation stroke (CMS/HCC V24, CMS/H CC V28) 05/14/2018 Overview (04/25/2024): Visual filed defects Achalasia, esophageal 03/23/2018 Overview (04/25/2024): Patient was seen by Dr. Leigh in July 2017 for heartburn, dysphagia, weight loss, vomiting-differential esophageal motility disorder/stricture/malignancy. Esophagus barium swallow-September 2017-significant luminal narrowing of distal esophagus with esophageal dilatation-consistent with achalasia. He also had endoscopy, esophageal manometry. Patient seen surgeon Dr. Maurice in January 2018, she is advised to get POEM procedure-per oral endoscopic myotomy. Endoscopy 10/06/2017.-needed endotracheal intubation for kckhkeowk-ftlpqstjx-fimjtsxh motility compatible with achalasia and tight gastroesophageal junction with semisolid food throughout the esophagus. Normal stomach and duodenum. 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 Hypercholesteremia 01/14/2018 Overview (04/25/2024): DX:Hypercholesteremia Memory difficulty 01/14/2018 Overview (04/25/2024): DX:Memory difficulty Encounters Date Type Department Care Team Description 07/12/2024 Telephone Internal Medicine - [address] [place] [address] Jo-Ann Gannon MA from Last 3 Months Immunizations Name Administration Dates Next Due Influenza Quadravalent, MDCK , 0.5ml, preservative free (Flucelvax) 6mo and older 03/04/2021,04/05/2019,01/14/2018 Tdap Tetanus diptheria acell ular pertussis (Boostrix; Adacel) 7yo and older 01/14/2018 Surgical History Surgery Date Site/Laterality Comments BACK SURGERY 1989 PROCEDURE: HISTORICAL BACK SURGERY; COMMENT: L5-S1 right discectomy SHOULDER ARTHROSCOPY 11/01/2021 Left PROCEDURE: [place] SURGICAL ARTHROSCOPY SHOULDER W/LSS&RESCJ ADS; COMMENT: left RCR augmentation, SAD, LD 11/01/21 w/Dr. 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 01/14/2018 DX:Heteronymous bilateral fi eld defects in visual field Family History Medical History Relation Name Comments No Known Problems Brother 1 No Known Problems Brother 2 COPD Father Other: cancer unknown Father No Known Problems Maternal Grandfather No Known Problems Maternal Grandmother Heart attack Mother Rheum arthritis Mother Diabetes Paternal Grandfather Other: interstitial lung disease Paternal Grandmother No Known Problems Sister Relation Name Status Comments Brother 1 Alive Brother 2 Alive Father Maternal Grandfather Maternal Grandmother Mother Paternal Grandfather Paternal Grandmother Sister Alive Social History Tobacco Use Types Packs/Day Years Used Date Smoking Tobacco: Former Cigarettes 0.8 20 0 03/09/1994 - 03/09/2014 Smokeless Tobacco: Never Alcohol Use Standard Drinks/Week Comments No 0 (1 standard drink = 0.6 oz pur e alcohol) Sex and Gender Information Value Date Recorded Sex Assigned at Not on file Legal Sex Male 2:16 PM EST Gender Identity Not on file Sexual Orientation Not on file Obstetrics History Last Filed Vital Signs Vital Sign Reading Time Taken Comments Blood Pressure 131/71 06/19/2023 3:38 PM EDT Pulse 62 06/19/2023 3:38 PM EDT Temperature - - Respiratory Rate - - Oxygen Saturation - - Inhaled Oxygen Concentration - - Weight 102 kg (225 lb 3.2 oz) 06/19/2023 3:38 PM EDT Height 190.5 cm (6' 3 ) 06/19/2023 3:38 PM EDT Body Mass Index 28.15 06/19/2023 3:38 PM EDT Plan of Treatment Upcoming Encounters Date Type Department Care Team (Late st Contact Info) Description 10/21/2024 12:00 PM EDT Office Visit Internal Medicine - [place] [address] [facility] [address] [place] [address] Wu Underwood MD [address] [facility] [address] [place] [address] Health Maintenance Due Date Last Done Comments Pneumococcal Vaccine: 50+ Years (1 of 1 - PCV) 05/23/2009 Zoster Vaccines (1 of 2) 05/23/2009 Abdominal Aortic Aneurysm (AAA) Screen 02/15/2022 Colorectal Cancer Screening: Colonoscopy 02/15/2022 Depression Screening 02/15/2022 Social Influencers of Health Screening 02/15/2022 COVID-19 Vaccine (3 - 2023-2 5 season) 2023 07/11/2020, 06/18/2020 Medicare Annual Wellness Visit 03/04/2024 03/04/2023 Falls Risk Assessment 05/23/2024 Influenza Vaccine (Season Ended) 2024 03/04/2021, 04/05/2019, 01/14/2018 Cholesterol Screening (Lipid Panel) 10/10/2026 10/10/2021 DTaP,Tdap,and Td Vaccines (2 - Td or Tdap) 01/15/2028 01/14/2018 RSV Immunization Adult Patients (1 - 1-dose 75+ series) 05/23/2034 Hepatitis C Screening Completed 10/10/2021 HIB Vaccines Aged Out No longer eligi ble based on patient's age to complete this topic HPV Vaccines Aged Out No longer eligi ble based on patient's age to complete this topic Hepatitis A Vaccines Aged Out No long er eligible based on patient's age to complete this topic Hepatitis B Vaccines Aged Out No long er eligible based on patient's age to complete this topic IPV Vaccines Aged Out No longer eligi ble based on patient's age to complete this topic MMR Vaccines Aged Out No longer eligi ble based on patient's age to complete this topic Meningococcal ACWY Vaccine Aged Out N o longer eligible based on patient's age to complete this topic Meningococcal B Vaccine Aged Out No l onger eligible based on patient's age to complete this topic Pneumococcal Vaccine: Pediatrics (0 to 5 Years) and At-Risk Patients (6 to 64 Years) Aged Out No longer eligible b ased on patient's age to complete this topic RSV Immunization Patients Under 20 months Aged Out No longer eligible b ased on patient's age to complete this topic Varicella Vaccines Aged Out No longer eligible based on patient's age to complete this topic Procedures Procedure Name Priority Date/Time Associated Diagnosis Comments HM HEPATITIS C SCREENING Routine 10/10/2021 LIPID PANEL Routine 10/10/2021 from Last 3 Months or Most Recently Relevant to Health Maintenance Results * Hm Hepatitis C Screening (10/10/2021) Hepatitis C Screening Abstracted us Historical Provider HEALTH MAINTENANCE Final Result * (ABNORMAL) Lipid panel (10/10/2021) LDL/HDL Ratio 6(A) 0 - 4 Triglycerides 166(A) 0 - 150 mg/dL Cholesterol 211(A) 0 - 200 mg/dL HDL 38(A) >=40 mg/dL LDL Cholesterol 140(A) 0 - 100 mg/dL Blood Venous blood specimen / Unknown us Historical Provider LAB BLOOD ORDERABLES Kimberley l Result from Last 3 Months or Most Recently Relevant to Health Maintenance Insurance MEDICARE Care Teams Account Executive Sales Representative Relationship Specialty Start Date End Date Wu Underwood MD [address] [address] PCP - General 12/17/23
--- NOTE | 2024-07-13 00:10 | PC.NURSE ---
report given to MACHINE ICER Suellen, aware meds not given d/t not being verified, pharmacy already called. states ok for transport. pt being transported to icu at this time with this RN and Lizy PCT.
[2024-07-13] MEDS: Digoxin 0.5 MG/2 ML AMPUL 0.25 MG IVPUSH ×3 (00:55→18:31)
[2024-07-13] MEDS: Albumin Human 25 % 100 ML 133.33 ML IV ×2 (00:55→01:43)
[2024-07-13] MEDS: Enoxaparin Sodium 100 MG/ML SYRINGE SUBCUT ×2 (00:58→13:49)
[2024-07-13] MEDS: 0.9 % Sodium Chloride Flush 3 ML SYRINGE IVFLUSH ×4 (00:58→20:16)
[2024-07-13 01:14] LABS: Troponin-I High Sensitivity 19.7 ng/L (<3.5-35.0)
[2024-07-13 01:19] LABS: Alanine Aminotransferase 36 U/L (0-40); Albumin Level 3.8 g/dL (3.5-5.0); Alkaline Phosphatase 63 U/L (39-117); Anion Gap 14 (12-20); Aspartate Amino Transferase 30 U/L (5-37); Bilirubin Total 2.5 mg/dL (0.0-1.0); Blood Urea Nitrogen 21 mg/dL (9-16); Calcium 8.5 mg/dL (8.4-10.2); Carbon Dioxide 20 mmol/L (22-29); Chloride 110 mmol/L (96-108); Creatinine Clr Calc Pharmacy 74.7; Estimated Glomerular Filt Rate > 60; Glucose Random 149 mg/dL (60-115); Potassium 4.4 mmol/L (3.3-5.1); Sodium 140 mmol/L (135-145); Total Protein 6.1 g/dL (6.5-8.0)
[2024-07-13] MEDS: dilTIAZem HCL 125 MG in 0.9 % Sodium Chloride 100 ML IVCONT (02:44)
[2024-07-13 04:58] LABS: MANUAL DIFF FLAG NO
[2024-07-13 04:59] LABS: Basophils Percent Auto 0.3 % (0-2); Eosinophils Percent Auto 0.3 % (0-4); Hematocrit 36.2 % (42.0-52.0); Hemoglobin 12.5 g/dl (14.0-18.0); Imm Gran Abs Auto 0.02 X10*3/uL (0.00-0.03); Imm Gran Pct Auto 0.3 % (0.0-0.4); Lymphocytes Absolute Auto 0.7 X10*3/uL (1.2-4.9); Lymphocytes Percent Auto 12.4 % (20-40); Mean Corpuscular HGB Conc 34.5 g/dl (31.0-36.0); Mean Corpuscular Hemoglobin 31.1 pg (27.0-33.0); Mean Platelet Volume 12.5 fL (9.4-12.4); Monocytes Absolute Auto 0.3 X10*3/uL (0.1-1.2); Monocytes Percent Auto 4.7 % (2-11); Neutrophils Absolute Auto 4.9 x10*3/uL (2.0-8.3); Red Blood Count 4.02 X10*6/uL (4.60-5.80); Red Cell Distribution Width 13.9 % (11.0-16.0)
[2024-07-13 05:01] LABS: Platelet Count 95 X10*3/uL (160-400)
[2024-07-13 05:22] LABS: Anion Gap 13 (12-20); Blood Urea Nitrogen 20 mg/dL (9-16); Calcium 8.8 mg/dL (8.4-10.2); Carbon Dioxide 19 mmol/L (22-29); Chloride 110 mmol/L (96-108); Creatinine Clr Calc Pharmacy 87.7; Estimated Glomerular Filt Rate > 60; Glucose Random 116 mg/dL (60-115); Magnesium 1.9 mg/dL (1.6-2.6); Phosphorus 2.5 mg/dL (2.7-4.5); Potassium 4.4 mmol/L (3.3-5.1); Sodium 138 mmol/L (135-145)
[2024-07-13 05:36] LABS: Thyroid Stimulating Hormone 1.04 uIU/mL (0.32-4.0)
[2024-07-13] MEDS: Pantoprazole Sodium 40 MG/10 ML VIAL IVPUSH (06:27)
--- NOTE | 2024-07-13 06:42 | PC.NURSE ---
Critical Care Nursing Note? The patient arrived to the unit at 0025, via stretcher. Levophed was infusing at this time. Patient alert and oriented, follows commands and moves all extremities. Patient AFiib on telemetry, heart rate 100-130?s. Digoxin 0.25mg IVP administered x2. Diltiazem drip initiated, levophed titrated per protocol. Patient remained on 2LNC to maintain oxygen saturation greater than 92%. Both Levophed and Diltiazem drip titrated off by shifts end.?
--- NOTE | 2024-07-13 07:00 | CA_ITS ---
Transthoracic Echocardiogram Patient (Last, First, Middle): Kali Rasmussen P Gender: Male Date of : 1960 Age: 64 Procedure Date: 07/13/2024 Procedure Type: Transthoracic Echocardiogram Location: ICU Height: 190.5 cm Weight: 102.06 kg BSA: 2.31 m2 Heart Rate: bpm BP: 101 / 62 mmHg Electric Motorman: Referring MD: Daniel Burroughs MD Symptoms: afib Study Quality: Adequate ECG Rhythm: Atrial Fibrillation Conclusions: - The left ventricular systolic function is severely decreased. The visually estimated ejection fraction is between 15-20%. - No obvious valvular pathology seen on this study. - Mild pulmonary hypertension is present. - There is mild dilatation of the ascending aorta measuring 4.00 cm. Findings Procedure Information Contrast agent, definity, is being given per protocol without apparent complications. Left Ventricle Moderately increased left ventricular cavity size. There is normal left ventricular wall thickness. The left ventricular systolic function is severely decreased. The visually estimated ejection fraction is between 15 20%. There is severe global hypokinesis. Diastolic function is indeterminate on the basis of available data. Right Ventricle Mildly increased right ventricular cavity size. There is mildly decreased right ventricular systolic function. Atria Moderate biatrial enlargement. Aortic Valve There is a normal trileaflet aortic valve. There is mild calcification of the aortic valve. There is no aortic valve stenosis. There is no aortic valve regurgitation. Mitral Valve The mitral valve appears normal. There is trace mitral valve regurgitation. There is no mitral valve stenosis. Pulmonic Valve The pulmonic valve is likely normal. Tricuspid Valve Normal tricuspid valve structure. There is mild tricuspid valve regurgitation. Mild pulmonary hypertension is present. Great Vessels There is mild dilatation of the ascending aorta measuring 4.00 cm. Venous The inferior vena cava is dilated and collapses less than 50% with inspiration. Pericardium/Pleural There is a pleural effusion. Prior Study Comparison No prior study available for comparison. Recommendations, Care & Conclusions No obvious valvular pathology seen on this study. Measurements 2D Linear Measurements IVSd: 0.97 0.6-0.9/0.6-1.0 cm LVIDd: 6.24 3.9-5.3/4.2-5.9 cm LVIDd Index: 2.70 2.4-3.2/2.2-3.1 cm/m2 LVIDs: 5.98 2.0-3.6 cm LVPWd: 0.98 0.7-1.1 cm Ao Root: 3.70 2.1-3.5 cm LA Diam: 5.30 2.7-3.8/3.0-4.0 cm LAIDs Index: 2.29 1.5-2.3 cm/m2 LV Mass: 319.06 67-162/88-224 g LV Mass Index: 138.12 43-95/49-115 g/m2 LVOT Diam: 2.10 3.0+(-)1.3 cm 2D Systolic Function EF 4C: 19.70 >55% EF 2C: 14.50 >55% EF BiP: 16.60 >55% Mitral Valve MV Pk E: 1.39 MV Decel Time: 150.00 E'Lateral: 8.38 E'Medial: 2.61 E/E' Med: 53.30 E/E' Lat: 16.60 PHT: 44.00 MVA PHT: 5.00 Decel Dunn: 9.27 Aortic Valve AoV Pk Lalit: 1.07 AoV Mn Lalit: 0.85 AoV VTI: 0.20 AoV Pk Grad: 5.00 Aov Mn Grad: 4.00 RHINA Cont.VTI: 1.98 LVOT LVOT Pk Lalit: 0.62 LVOT Mn Lalit: 0.46 LVOT VTI: 0.11 LVOT Pk Grad: 2.00 LVOT Mn Grad: 1.00 LVOT Diam: 2.10 LVOT Area: 3.46 Diastolic Function MV Pk E: 1.39 E'Medial: 2.61 E/E' Med: 53.30 E' Laterial: 8.38 E/E' Lat: 16.60 Right Ventricle TAPSE (mm): 17.00 TVS' Lalit: 9.00 Tricuspid Valve TR Pk Lalit: 2.39 TR Pk Grad: 23.00 RA Press: 15.00 RVSP: 38.00 Great Vessels Aorta Ao Root-2D: 3.70 2.0-3.7 cm Ao Asc: 4.00 2.1-3.4 cm Updated in Other Vendor System with Status of Final Jose Chicas MD electronically signed on 07/13/2024 12:42:21 PM with status of Final
[2024-07-13 08:00] LABS: Alanine Aminotransferase 29 U/L (0-40); Albumin Level 3.9 g/dL (3.5-5.0); Alkaline Phosphatase 54 U/L (39-117); Aspartate Amino Transferase 26 U/L (5-37); Bilirubin Direct 0.5 mg/dL (0.0-0.5); Bilirubin Total 2.9 mg/dL (0.0-1.0); Total Protein 5.9 g/dL (6.5-8.0)
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
--- NOTE | 2024-07-13 09:28 | MHC.CM.PN ---
Pt having a procedure and not able to meet w/CM at this time: information obtained from EMR and rounds: pt resides alone, has no services or DME. No HCP on file - may need assistance with transportation to home. CM to revisit pt for completion of assessment.
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
[2024-07-13] MEDS: Magnesium Sulfate/D5W 1 GM/100 ML PIGGYBACK IV (11:03)
[2024-07-13] MEDS: Calcium Carbonate 750 MG TAB.CHEW PO (11:05)
--- NOTE | 2024-07-13 11:09 | PM.CCPN ---
Subjective Subjective Date of Service: 07/13/24 Interval History: Comfortable, no new complaints this morning Off Levophed and diltiazem drip and blood pressures and heart rate controlled Critical Care Time (minutes): 35 Physical Exam Vital Signs: Vital Signs: Last Vital Signs Temp 97.0 F 07/13/24 08:00 Pulse 119 H 07/13/24 10:00 Resp 20 07/13/24 10:00 BP 115/79 07/13/24 10:00 Pulse Ox 95 07/13/24 10:00 O2 Del Method Room Air 07/13/24 10:00 O2 Flow Rate 2 07/13/24 07:00 BMI result Body Mass Index 27.4 General: Elderly male, lying in the bed, pleasant and comfortable Nutritional Appearance: well nourished and overweight Eyes: appearance normal, both eyes and all related structures; Alignment and Position: alignment normal and position normal Neck: No lymphadenopathy, no thyromegaly Resp: bilateral air entry equal, no added sounds present Cardio: Regular rate, regular rhythm; Heart sounds: S1 normal heart sound present and S2 normal heart sound present GI: soft, nontender, no guarding, no hepatosplenomegaly : bladder normal to inspection, bladder normal to palpation, no renal angle tenderness Skin: no rashes or lesions noted and elasticity normal Neuro: oriented to person, oriented to place, oriented to time and moves all extremities Objective Data Labs 07/13/24 04:24 07/13/24 04:24 Labs: Laboratory Results - last 24 hr 07/12/24 07/12/24 07/12/24 18:03 20:42 23:19 WBC 5.8 RBC 4.52 L Hgb 14.1 Hct 41.8 L MCV 92.5 MCH 31.2 MCHC 33.7 RDW 14.1 Plt Count 124 L MPV 12.1 Immature Gran % (Auto) 0.2 Neut % (Auto) 72.8 Lymph % (Auto) 18.5 L [place] % (Auto) 6.5 Eos % (Auto) 1.5 Baso % (Auto) 0.5 Lymph # (Auto) 1.1 L [place] # (Auto) 0.4 Eos # (Auto) 0.1 Baso # (Auto) 0.0 Abs Immat Gran (auto) 0.01 Absolute Neuts (auto) 4.2 Absolute Nucleated RBC 0.000 Nucleated RBC % (auto) 0.0 APTT 28.6 Sodium 141 Potassium 4.7 Chloride 108 Carbon Dioxide 25 Anion Gap 13 BUN 21 H Creatinine 1.26 Estim Creat Clear Calc 71.7 Estimated GFR 57 POC Glucose 131 H Random Glucose 103 Calcium 9.1 Phosphorus Magnesium Total Bilirubin 2.3 H Direct Bilirubin AST 40 H ALT 46 H Alkaline Phosphatase 71 Troponin I High Sens 19.7 21.0 B-Natriuretic Peptide 726 H Total Protein 6.7 Albumin 4.2 Lipase 27 TSH 07/13/24 07/13/24 07/13/24 00:44 04:24 07:29 WBC 6.0 RBC 4.02 L Hgb 12.5 L Hct 36.2 L MCV 90.0 MCH 31.1 MCHC 34.5 RDW 13.9 Plt Count 95 L MPV 12.5 H Immature Gran % (Auto) 0.3 Neut % (Auto) 82.0 H Lymph % (Auto) 12.4 L [place] % (Auto) 4.7 Eos % (Auto) 0.3 Baso % (Auto) 0.3 Lymph # (Auto) 0.7 L [place] # (Auto) 0.3 Eos # (Auto) 0.0 Baso # (Auto) 0.0 Abs Immat Gran (auto) 0.02 Absolute Neuts (auto) 4.9 Absolute Nucleated RBC 0.000 Nucleated RBC % (auto) 0.0 APTT Sodium 140 138 Potassium 4.4 4.4 Chloride 110 H 110 H Carbon Dioxide 20 L 19 L Anion Gap 14 13 BUN 21 H 20 H Creatinine 1.21 1.03 Estim Creat Clear Calc 74.7 87.7 Estimated GFR > 60 > 60 POC Glucose Random Glucose 149 H 116 H Calcium 8.5 D 8.8 Phosphorus 2.5 L Magnesium 1.9 Total Bilirubin 2.5 H 2.9 H Direct Bilirubin 0.5 AST 30 26 ALT 36 29 Alkaline Phosphatase 63 54 Troponin I High Sens 19.7 B-Natriuretic Peptide Total Protein 6.1 L 5.9 L Albumin 3.8 3.9 Lipase TSH 1.90 1.04 Progress Note: A&P Assessment and plan (1) Congestive heart failure: Status: Acute (2) Atrial fibrillation with rapid ventricular response: Status: Acute (3) Achalasia, esophageal: Status: Acute (4) Lower urinary tract symptoms: Status: Acute (5) Erectile dysfunction: Status: Acute (6) Low libido: Status: Acute Plan Cardiogenic shock: Possibly medication induced from diltiazem Levophed turned off this morning We will get official TTE, bedside TTE showed slightly depressed LV systolic function, dilated LV, IVC enlarged. Atrial fibrillation with RVR: We will start the patient on metoprolol 25 daily, can increase to 50 mg daily if the heart rate stays of the higher side as per Cardiology recommendation Lovenox for anticoagulation Achalasia cardia: GI consulted We will keep him NPO except for meds for now until GI see him BPH: Tamsulosin withheld in view of hypotension Prophylaxis: Pantoprazole We will transfer him back to floor Quality Stroke Does the patient have a stroke diagnosis?: No VTE Prior VTE?: No VTE Risk Level:: Medical - moderate - high VTE Device Contraindication: N/A - Device Ordered VTE Drug Contraindication: Treatment Not Indicated
[2024-07-13] MEDS: Metoprolol Succinate ER 25 MG TAB.ER.24H PO (11:10)
[2024-07-13] MEDS: Melatonin 3 MG TABLET 6 MG PO (20:15)
[2024-07-14] VITALS (7 sets, daily range): BP systolic 115–129; BP diastolic 67–87; PULSE 64–96; RESP 16–18; TEMP 36.4–36.9; O2SAT 93–96
[2024-07-14] MEDS: Enoxaparin Sodium 100 MG/ML SYRINGE SUBCUT ×2 (00:40→14:03)
[2024-07-14] MEDS: Pantoprazole Sodium 40 MG/10 ML VIAL IVPUSH (06:34)
[2024-07-14 07:46] LABS: MANUAL DIFF FLAG NO
[2024-07-14 07:58] LABS: Basophils Percent Auto 0.7 % (0-2); Eosinophils Absolute Auto 0.2 X10*3/uL (0.0-0.4); Eosinophils Percent Auto 2.5 % (0-4); Hematocrit 41.9 % (42.0-52.0); Hemoglobin 14.3 g/dl (14.0-18.0); Imm Gran Abs Auto 0.01 X10*3/uL (0.00-0.03); Imm Gran Pct Auto 0.2 % (0.0-0.4); Lymphocytes Absolute Auto 1.4 X10*3/uL (1.2-4.9); Lymphocytes Percent Auto 23.3 % (20-40); Mean Corpuscular HGB Conc 34.1 g/dl (31.0-36.0); Mean Corpuscular Hemoglobin 31.2 pg (27.0-33.0); Mean Corpuscular Volume 91.3 fL (80.0-98.0); Mean Platelet Volume 12.7 fL (9.4-12.4); Monocytes Absolute Auto 0.4 X10*3/uL (0.1-1.2); Monocytes Percent Auto 6.9 % (2-11); Neutrophils Absolute Auto 4.1 x10*3/uL (2.0-8.3); Neutrophils Percent Auto 66.4 % (45-73); Platelet Count 101 X10*3/uL (160-400); Red Blood Count 4.59 X10*6/uL (4.60-5.80); Red Cell Distribution Width 13.9 % (11.0-16.0); White Blood Count 6.1 X10*3/uL (4.8-10.8)
[2024-07-14 08:17] LABS: Anion Gap 13 (12-20); Blood Urea Nitrogen 17 mg/dL (9-16); Calcium 9.1 mg/dL (8.4-10.2); Carbon Dioxide 24 mmol/L (22-29); Chloride 107 mmol/L (96-108); Creatinine Clr Calc Pharmacy 78.6; Estimated Glomerular Filt Rate > 60; Glucose Random 88 mg/dL (60-115); Potassium 4.5 mmol/L (3.3-5.1); Sodium 139 mmol/L (135-145)
[2024-07-14] MEDS: 0.9 % Sodium Chloride Flush 3 ML SYRINGE IVFLUSH ×3 (09:55→21:10)
[2024-07-14] MEDS: Digoxin 0.5 MG/2 ML AMPUL 0.25 MG IVPUSH (09:56)
[2024-07-14] MEDS: Metoprolol Succinate ER 25 MG TAB.ER.24H PO (09:56)
--- NOTE | 2024-07-14 10:28 | PM.PNCARD ---
Subjective Subjective Date of Service: 07/14/24 Interval history: Patient states that he is feeling better. He was in the ICU as today but now he is in the floor. Lying down on seems comfortable. Review of Systems Review of Systems Yes all other systems are reviewed and are negative Constitutional: Reports as per HPI and Reports no additional constitutional complaints Eyes: Reports as per HPI and Denies no additional eye complaints Denies system reviewed and no additional complaints, except as documented and Reports as per HPI Cardiovascular: Reports as per HPI, Reports no additional cardiovascular complaints, Denies acrocyanosis, Denies cool extremities, Denies chest pain, Denies leg edema, Denies lightheadedness, Denies palpitations and Denies dyspnea Respiratory: Reports as per HPI, Denies no additional respiratory complaints and Denies dyspnea Gastrointestinal: Reports as per HPI and Denies no additional gastrointestinal complaints Genitourinary: Reports no additional male genitourinary complaints and Reports as per HPI Musculoskeletal: Reports no additional musculoskeletal complaints and Reports as per HPI Skin/Breast: Reports system reviewed and no additional complaints, except as docu Reports system reviewed and no additional complaints, except as documented and Reports as per HPI Psychiatric: Reports no additional psychiatric complaints and Reports as per HPI Endocrine: Reports no additional endocrine complaints, Reports as per HPI and Denies palpitations Hematologic/Lymphatic: Reports no additional hematologic/lymphatic complaints and Reports as per HPI Allergic/Immunologic: Reports no additional allergic/immunologic complaints and Reports as per HPI Physical Exam Vital Signs: Last Vital Signs Temp 97.6 F 07/14/24 08:00 Pulse 92 07/14/24 08:00 Resp 18 07/14/24 08:00 BP 123/80 07/14/24 08:00 Pulse Ox 96 07/14/24 08:00 O2 Del Method Room Air 07/14/24 08:00 O2 Flow Rate 2 07/13/24 07:00 BMI result Body Mass Index 27.4 Const General: comfortable and no acute distress Orientation/consciousness: patient oriented x3 HEENT Other: Unremarkable Head: Yes normal to inspection Neck Neck: Yes normal visual inspection Chest Chest palpation & inspection: normal inspection of the chest Resp Auscultation: clear to auscultation bilaterally Cardio Palpation: normal PMI Heart sounds: S1 normal heart sound present, S2 normal heart sound present, no gallops, no murmurs and no rubs GI Palpation (GI): Soft to palpation Back/Spine/Pelvis Other: unremarkable Skin General skin exam: no rashes or lesions noted Neuro General: patient oriented x3 Extrem General: Yes normal to inspection Psych Mental Status: mental status grossly normal Objective Labs and Meds 07/14/24 07:08 07/14/24 07:08 Lab results: Laboratory Results - last 24 hr 07/14/24 07:08 WBC 6.1 RBC 4.59 L Hgb 14.3 Hct 41.9 L MCV 91.3 MCH 31.2 MCHC 34.1 RDW 13.9 Plt Count 101 L MPV 12.7 H Immature Gran % (Auto) 0.2 Neut % (Auto) 66.4 Lymph % (Auto) 23.3 [place] % (Auto) 6.9 Eos % (Auto) 2.5 Baso % (Auto) 0.7 Lymph # (Auto) 1.4 [place] # (Auto) 0.4 Eos # (Auto) 0.2 Baso # (Auto) 0.0 Abs Immat Gran (auto) 0.01 Absolute Neuts (auto) 4.1 Absolute Nucleated RBC 0.000 Nucleated RBC % (auto) 0.0 Sodium 139 Potassium 4.5 Chloride 107 Carbon Dioxide 24 Anion Gap 13 BUN 17 H Creatinine 1.15 Estim Creat Clear Calc 78.6 Estimated GFR > 60 Random Glucose 88 Calcium 9.1 Progress Note: A&P Assessment and plan (1) Atrial fibrillation with rapid ventricular response: Status: Acute (2) Congestive heart failure: Status: Acute (3) Achalasia, esophageal: Status: Acute Plan Unremarkable high sensitivity troponin. Cardiac BNP increased at 726. CT chest reported have distal esophageal narrowing/achalasia. Mild cardiomegaly and bilateral pleural effusions. In the echocardiogram, LVEF is 15-20%. No significant valvular findings. Mild pulmonary hypertension. Ascending aortic size 4 cm. Overall, possibly atrial fibrillation with rapid rate leading to tachycardia induced cardiomyopathy. Currently, he is hemodynamically stable. Atrial fibrillation rate is well controlled. He can stay on beta-blockers. Digoxin load followed by maintenance. For anticoagulation, eventually Eliquis. Currently, he is on Lovenox. Cannot do ROSAMARIA cardioversion because of esophageal issues. Hence possible cardioversion as an outpatient after 4 weeks of anticoagulation. Time Spent With Patient Time: Total time managing care of this patient today ____ minutes. Progress Note: Quality Stroke Does the patient have a stroke diagnosis?: No Procedures Date of Service Date of Service: 07/14/24
--- NOTE | 2024-07-14 15:18 | P.PNIM_ITS ---
Subjective Subjective Date of Service: 07/14/24 Interval History: no acute issues overnight. Review of Systems Denies chest pain Denies shortness of breath Denies nausea vomiting diarrhea Denies fever chills Physical Exam 2 Vital Signs: Vital Signs: Last Vital Signs Temp 98.2 F 07/14/24 11:29 Pulse 76 07/14/24 11:29 Resp 18 07/14/24 11:29 BP 115/78 07/14/24 11:29 Pulse Ox 96 07/14/24 11:29 O2 Del Method Room Air 07/14/24 11:29 O2 Flow Rate 2 07/13/24 07:00 BMI result Body Mass Index 27.4 Const: Other: awake alert no acute distress Resp: Other: clear to auscultation bilaterally no rales rhonchi or wheezes Cardio: Other: no S4; positive S1-S2; no S3 murmurs rubs or gallops GI: Other: soft nontender nondistended normoactive bowel sounds Extrem: Other: no edema bilaterally Objective Data Active Medications Acetaminophen (Acetaminophen 325 Mg Tablet) 650 mg PO Q6H PRN PRN Reason: Pain, Mild 1-3,fever,headache Calcium Carbonate (Calcium Carbonate 750 Mg Tab.Chew) 750 mg PO Q4H PRN PRN Reason: Heartburn Last Admin: 07/13/24 11:05 Dose: 750 mg Documented By: DOC Digoxin (Digoxin 0.125 Mg Tablet) 0.125 mg PO DAILY [facility]; Protocol Enoxaparin Sodium (Enoxaparin Sodium 100 Mg/Ml Syringe) 100 mg 1 mg/kg (100 mg) SUBCUT Q12H [facility] Last Admin: 07/14/24 14:03 Dose: 100 mg Documented By: BARBARA Magnesium Hydroxide (Milk Of Magnesia 30 Ml Oral.Susp) 30 ml PO DAILY PRN PRN Reason: Constipation Melatonin (Melatonin 3 Mg Tablet) 6 mg PO BEDTIME PRN PRN Reason: Insomnia Last Admin: 07/13/24 20:15 Dose: 6 mg Documented By: ANTOINC Metoprolol Succinate (Metoprolol Succinate Er 25 Mg Tab.Er.24h) 25 mg PO DAILY [facility]; Protocol Last Admin: 07/14/24 09:56 Dose: 25 mg Documented By: BARBARA Ondansetron HCl (Ondansetron Hcl 4 Mg/2 Ml Vial) 4 mg IVPUSH Q8H PRN PRN Reason: Nausea and Vomiting Pantoprazole Sodium (Pantoprazole Sodium 40 Mg/10 Ml Vial) 40 mg IVPUSH DAILY@0630 [facility] Last Admin: 07/14/24 06:34 Dose: 40 mg Documented By: ANTOINC Sodium Chloride (0.9 % Sodium Chloride Flush 3 Ml Syringe) 3 ml IVFLUSH QSHIFT [facility] Last Admin: 07/14/24 15:15 Dose: 3 ml Documented By: GUILMAT Labs 07/14/24 07:08 07/14/24 07:08 Labs: Laboratory Results - last 24 hr 07/14/24 07:08 MCV 91.3 MCH 31.2 MCHC 34.1 RDW 13.9 Plt Count 101 L MPV 12.7 H Immature Gran % (Auto) 0.2 Neut % (Auto) 66.4 Lymph % (Auto) 23.3 [place] % (Auto) 6.9 Eos % (Auto) 2.5 Baso % (Auto) 0.7 Lymph # (Auto) 1.4 [place] # (Auto) 0.4 Eos # (Auto) 0.2 Baso # (Auto) 0.0 Abs Immat Gran (auto) 0.01 Absolute Neuts (auto) 4.1 Absolute Nucleated RBC 0.000 Nucleated RBC % (auto) 0.0 Anion Gap 13 Estim Creat Clear Calc 78.6 Estimated GFR > 60 Random Glucose 88 Calcium 9.1 Assessment and Plan (1) Atrial fibrillation with rapid ventricular response: Status: Acute (2) Congestive heart failure: Status: Acute (3) Dysphagia: Status: Acute Plan This is a 64-year-old male with pertinent history of achalasia status post dilatation, BPH, mixed hyperlipidemia, history of CVA who presents to the emergency department for evaluation of difficulty swallowing and shortness of breath. 1.AFib with RVR, new onset - acceptable rate control - continue beta-yumiko/did avoid Cardizem - continue Lovenox pending GI input. Eliquis when appropriate 2..Acute decompensated congestive heart failure - mildly depressed EF - did/ beta-yumiko as per Cardiology - follow clinically 3.Dysphagia - low-fat diet as per GI - follow clinically Hold anticoagulation until GI evaluation Full code. Ongoing hospitalization for continued workup of acute decompensated heart failure with dysphagia Quality Stroke Does the patient have a stroke diagnosis?: No VTE Prior VTE?: No VTE Risk Level:: Medical - moderate - high VTE Device Contraindication: N/A - Device Ordered VTE Drug Contraindication: Treatment Not Indicated
[2024-07-14] MEDS: Melatonin 3 MG TABLET 6 MG PO (21:10)
[2024-07-15] MEDS: Enoxaparin Sodium 100 MG/ML SYRINGE SUBCUT ×3 (01:53→23:22)
[2024-07-15 02:31] VITALS: BP 128/88; PULSE 100; RESP 18; TEMP 36.6; O2SAT 95
[2024-07-15] MEDS: Pantoprazole Sodium 40 MG/10 ML VIAL IVPUSH (05:58)
[2024-07-15 08:00] VITALS: BP 122/90; PULSE 74; RESP 18; TEMP 36.4; O2SAT 95
--- NOTE | 2024-07-15 10:20 | PC.NURSE ---
pt states he feels like he is having difficulty breathing due to mucus in his esophagus. Due to pts history of esophageal narrowing morning meds were held because pt felt he could not safely swallow anything at this time. Md aware . This Rn placed the pt on 2L oxymax for comfort and suctioned pt.
[2024-07-15] MEDS: 0.9 % Sodium Chloride Flush 3 ML SYRINGE IVFLUSH ×3 (10:26→23:22)
[2024-07-15 12:00] VITALS: BP 121/87; PULSE 93; RESP 17; TEMP 36.7; O2SAT 92
[2024-07-15] MEDS: Digoxin 0.125 MG TABLET PO (13:11)
[2024-07-15] MEDS: Metoprolol Succinate ER 25 MG TAB.ER.24H PO (13:12)
--- NOTE | 2024-07-15 13:24 | PC.NURSE ---
pt felt he was able to swallow his medication. Morning medication taken shortly after 1300 with MDs approval.
--- NOTE | 2024-07-15 15:59 | HO.PM.IMPN ---
Subjective Subjective Date of Service: 07/15/24 Interval History: Some anxiety related to dysphagia this a.m.. Review of Systems Denies chest pain Denies shortness of breath Denies nausea vomiting diarrhea Denies fever chills Physical Exam Vital Signs: Vital Signs: Last Vital Signs Temp 98.0 F 07/15/24 12:00 Pulse 93 07/15/24 12:00 Resp 17 07/15/24 12:00 BP 121/87 07/15/24 12:00 Pulse Ox 92 07/15/24 12:00 O2 Del Method Room Air 07/15/24 12:00 O2 Flow Rate 2 07/13/24 07:00 BMI result Body Mass Index 27.4 Const: Other: awake alert no acute distress Resp: Other: clear to auscultation bilaterally no rales rhonchi or wheezes Cardio: Other: no S4; positive S1-S2; no S3 murmurs rubs or gallops GI: Other: soft nontender nondistended normoactive bowel sounds Extrem: Other: no edema bilaterally Objective Data Active Medications Acetaminophen (Acetaminophen 325 Mg Tablet) 650 mg PO Q6H PRN PRN Reason: Pain, Mild 1-3,fever,headache Calcium Carbonate (Calcium Carbonate 750 Mg Tab.Chew) 750 mg PO Q4H PRN PRN Reason: Heartburn Last Admin: 07/13/24 11:05 Dose: 750 mg Documented By: DOC Digoxin (Digoxin 0.125 Mg Tablet) 0.125 mg PO DAILY [facility]; Protocol Last Admin: 07/15/24 13:11 Dose: 0.125 mg Documented By: JULISSA Enoxaparin Sodium (Enoxaparin Sodium 100 Mg/Ml Syringe) 100 mg 1 mg/kg (100 mg) SUBCUT Q12H [facility] Last Admin: 07/15/24 14:10 Dose: 100 mg Documented By: JULISSA Magnesium Hydroxide (Milk Of Magnesia 30 Ml Oral.Susp) 30 ml PO DAILY PRN PRN Reason: Constipation Melatonin (Melatonin 3 Mg Tablet) 6 mg PO BEDTIME PRN PRN Reason: Insomnia Last Admin: 07/14/24 21:10 Dose: 6 mg Documented By: ANTOINFlorencia Metoprolol Succinate (Metoprolol Succinate Er 25 Mg Tab.Er.24h) 25 mg PO DAILY [facility]; Protocol Last Admin: 07/15/24 13:12 Dose: 25 mg Documented By: JULISSA Ondansetron HCl (Ondansetron Hcl 4 Mg/2 Ml Vial) 4 mg IVPUSH Q8H PRN PRN Reason: Nausea and Vomiting Pantoprazole Sodium (Pantoprazole Sodium 40 Mg/10 Ml Vial) 40 mg IVPUSH DAILY@0630 [facility] Last Admin: 07/15/24 05:58 Dose: 40 mg Documented By: ANTOINC Sodium Chloride (0.9 % Sodium Chloride Flush 3 Ml Syringe) 3 ml IVFLUSH QSHIFT [facility] Last Admin: 07/15/24 10:26 Dose: 3 ml Documented By: JULISSA Labs 07/14/24 07:08 07/14/24 07:08 Assessment and Plan (1) Atrial fibrillation with rapid ventricular response: Status: Acute (2) Dysphagia: Status: Acute Plan This is a 64-year-old male with pertinent history of achalasia status post dilatation, BPH, mixed hyperlipidemia, history of CVA who presents to the emergency department for evaluation of difficulty swallowing and shortness of breath. 1.AFib with RVR, new onset - acceptable rate control - continue beta-yumiko/did avoid Cardizem - continue Lovenox pending GI input. Eliquis when appropriate 2..Acute decompensated congestive heart failure - mildly depressed EF - did/ beta-yumiko as per Cardiology - follow clinically 3.Dysphagia - low-fat diet as per GI - follow clinically -await GI input Hold anticoagulation until GI evaluation Full code. Ongoing hospitalization for continued workup of acute decompensated heart failure with dysphagia Quality Stroke Does the patient have a stroke diagnosis?: No VTE Prior VTE?: No VTE Risk Level:: Medical - moderate - high VTE Device Contraindication: N/A - Device Ordered VTE Drug Contraindication: Treatment Not Indicated
[2024-07-15 16:00] VITALS: BP 110/87; PULSE 85; RESP 18; TEMP 36.7; O2SAT 98
[2024-07-15 16:03] LABS: Glucose, Whole Blood 87 mg/dL (60-115)
[2024-07-15] MEDS: diazePAM 10 MG/2 ML CARTRIDGE 5 MG IVPUSH (18:05)
[2024-07-15 19:50] VITALS: BP 125/71; PULSE 100; RESP 16; TEMP 36.6; O2SAT 96
[2024-07-15] MEDS: Calcium Carbonate 750 MG TAB.CHEW PO (23:23)
[2024-07-15 23:32] VITALS: BP 140/96; PULSE 75; RESP 18; TEMP 37.6; O2SAT 97
--- NOTE | 2024-07-16 02:17 | PC.NURSE ---
Patient up most of night coughing and spitting up phlegm. Reports he cannot eat or drink anything because it will come right back up. He feels like there is a blockage. He has poor p.o intake and his urine is concentrated. His heart rate last night ranged from 105-130.
[2024-07-16 03:26] VITALS: BP 131/82; PULSE 73; RESP 18; TEMP 37.6; O2SAT 93
[2024-07-16] MEDS: Pantoprazole Sodium 40 MG/10 ML VIAL IVPUSH (05:23)
[2024-07-16 08:00] VITALS: BP 111/61; PULSE 90; RESP 18; TEMP 36.8; O2SAT 98
[2024-07-16] MEDS: 0.9 % Sodium Chloride Flush 3 ML SYRINGE IVFLUSH (08:32)
[2024-07-16] MEDS: Metoprolol Succinate ER 25 MG TAB.ER.24H PO (08:32)
[2024-07-16] MEDS: Digoxin 0.125 MG TABLET PO (08:32)
[2024-07-16 12:00] VITALS: BP 130/60; PULSE 88; RESP 18; TEMP 36.9; O2SAT 94
--- NOTE | 2024-07-16 13:23 | HO.PM.IMPN ---
Subjective Subjective Date of Service: 07/16/24 Interval History: Continues with dysphagia including liquids Review of Systems Denies chest pain Denies shortness of breath Denies nausea vomiting diarrhea Denies fever chills Physical Exam Vital Signs: Vital Signs: Last Vital Signs Temp 98.4 F 07/16/24 12:00 Pulse 88 07/16/24 12:00 Resp 18 07/16/24 12:00 BP 130/60 07/16/24 12:00 Pulse Ox 94 07/16/24 12:00 O2 Del Method Room Air 07/16/24 12:00 O2 Flow Rate 2 07/13/24 07:00 BMI result Body Mass Index 27.4 Const: Other: awake alert no acute distress Resp: Other: clear to auscultation bilaterally no rales rhonchi or wheezes Cardio: Other: no S4; positive S1-S2; no S3 murmurs rubs or gallops GI: Other: soft nontender nondistended normoactive bowel sounds Extrem: Other: no edema bilaterally Objective Data Active Medications Acetaminophen (Acetaminophen 325 Mg Tablet) 650 mg PO Q6H PRN PRN Reason: Pain, Mild 1-3,fever,headache Calcium Carbonate (Calcium Carbonate 750 Mg Tab.Chew) 750 mg PO Q4H PRN PRN Reason: Heartburn Last Admin: 07/15/24 23:23 Dose: 750 mg Documented By: ABIEL Diazepam (Diazepam 10 Mg/2 Ml Cartridge) 5 mg IVPUSH Q4H PRN PRN Reason: anxiety Last Admin: 07/15/24 18:05 Dose: 5 mg Documented By: RISHI Digoxin (Digoxin 0.125 Mg Tablet) 0.125 mg PO DAILY [facility]; Protocol Last Admin: 07/16/24 08:32 Dose: 0.125 mg Documented By: DOBROB Enoxaparin Sodium (Enoxaparin Sodium 100 Mg/Ml Syringe) 100 mg 1 mg/kg (100 mg) SUBCUT Q12H [facility] Last Admin: 07/15/24 23:22 Dose: 100 mg Documented By: ABIEL Magnesium Hydroxide (Milk Of Magnesia 30 Ml Oral.Susp) 30 ml PO DAILY PRN PRN Reason: Constipation Melatonin (Melatonin 3 Mg Tablet) 6 mg PO BEDTIME PRN PRN Reason: Insomnia Last Admin: 07/14/24 21:10 Dose: 6 mg Documented By: ANTOINFlorencia Metoprolol Succinate (Metoprolol Succinate Er 25 Mg Tab.Er.24h) 25 mg PO DAILY [facility]; Protocol Last Admin: 07/16/24 08:32 Dose: 25 mg Documented By: CHEO Ondansetron HCl (Ondansetron Hcl 4 Mg/2 Ml Vial) 4 mg IVPUSH Q8H PRN PRN Reason: Nausea and Vomiting Pantoprazole Sodium (Pantoprazole Sodium 40 Mg/10 Ml Vial) 40 mg IVPUSH DAILY@0630 [facility] Last Admin: 07/16/24 05:23 Dose: 40 mg Documented By: ABIEL Sodium Chloride (0.9 % Sodium Chloride Flush 3 Ml Syringe) 3 ml IVFLUSH QSHIFT [facility] Last Admin: 07/16/24 08:32 Dose: 3 ml Documented By: CHEO Labs 07/14/24 07:08 07/14/24 07:08 Labs: Laboratory Results - last 24 hr 07/15/24 15:59 POC Glucose 87 Assessment and Plan (1) Atrial fibrillation with rapid ventricular response: Status: Acute (2) Dysphagia: Status: Acute Plan This is a 64-year-old male with pertinent history of achalasia status post dilatation, BPH, mixed hyperlipidemia, history of CVA who presents to the emergency department for evaluation of difficulty swallowing and shortness of breath. 1.AFib with RVR, new onset - acceptable rate control - continue beta-yumiko/did avoid Cardizem - continue Lovenox pending GI input. Eliquis when appropriate 2..Acute decompensated congestive heart failure - mildly depressed EF - did/ beta-yumiko as per Cardiology - follow clinically 3.Dysphagia - barium swallow. .. Pill study -further plans based on forthcoming data Hold anticoagulation until GI evaluation Full code. Ongoing hospitalization for continued workup of acute decompensated heart failure with dysphagia Quality Stroke Does the patient have a stroke diagnosis?: No VTE Prior VTE?: No VTE Risk Level:: Medical - moderate - high VTE Device Contraindication: N/A - Device Ordered VTE Drug Contraindication: Treatment Not Indicated
[2024-07-16] MEDS: Enoxaparin Sodium 100 MG/ML SYRINGE SUBCUT (14:39)
[2024-07-16] MEDS: Magnesium Hydrox/Alum Hydrox 30 ML ORAL.SUSP PO (15:15)
[2024-07-16 15:53] VITALS: BP 119/85; PULSE 88; RESP 18; TEMP 36.6; O2SAT 93
[2024-07-16 19:42] VITALS: BP 126/80; PULSE 104; RESP 18; TEMP 36.4; O2SAT 94
[2024-07-16 23:59] VITALS: BP 134/84; PULSE 71; RESP 18; TEMP 37; O2SAT 96
[2024-07-17] MEDS: Enoxaparin Sodium 100 MG/ML SYRINGE SUBCUT ×2 (00:07→12:52)
[2024-07-17] MEDS: 0.9 % Sodium Chloride Flush 3 ML SYRINGE IVFLUSH ×3 (00:08→21:08)
[2024-07-17 03:39] VITALS: BP 128/86; PULSE 76; RESP 18; TEMP 36.6; O2SAT 93
[2024-07-17] MEDS: Pantoprazole Sodium 40 MG/10 ML VIAL IVPUSH (05:57)
[2024-07-17 08:00] VITALS: BP 126/87; PULSE 77; RESP 18; TEMP 36.6; O2SAT 97
[2024-07-17] MEDS: Digoxin 0.125 MG TABLET PO (08:33)
[2024-07-17] MEDS: Metoprolol Succinate ER 25 MG TAB.ER.24H PO (08:33)
[2024-07-17] MEDS: diazePAM 10 MG/2 ML CARTRIDGE 5 MG IVPUSH (10:43)
--- NOTE | 2024-07-17 11:08 | P.PNCA_ITS ---
Subjective Subjective Date of Service: 07/17/24 Interval history: Seen and evaluated patient and also discussed with the daughter at the bedside. Discussed with hospitalist as well as supervisor sound technician as well. No overt cardiac symptoms. Swallowing still seems to be the main issue. Review of Systems Review of Systems Yes all other systems are reviewed and are negative Constitutional: Reports as per HPI and Reports no additional constitutional complaints Eyes: Reports as per HPI and Denies no additional eye complaints Denies system reviewed and no additional complaints, except as documented and Reports as per HPI Cardiovascular: Reports as per HPI, Reports no additional cardiovascular complaints, Denies acrocyanosis, Denies cool extremities, Denies chest pain, Denies leg edema, Denies lightheadedness, Denies palpitations and Denies dyspnea Respiratory: Reports as per HPI, Denies no additional respiratory complaints and Denies dyspnea Gastrointestinal: Reports as per HPI and Denies no additional gastrointestinal complaints Genitourinary: Reports no additional male genitourinary complaints and Reports as per HPI Musculoskeletal: Reports no additional musculoskeletal complaints and Reports as per HPI Skin/Breast: Reports system reviewed and no additional complaints, except as docu Reports system reviewed and no additional complaints, except as documented and Reports as per HPI Psychiatric: Reports no additional psychiatric complaints and Reports as per HPI Endocrine: Reports no additional endocrine complaints, Reports as per HPI and Denies palpitations Hematologic/Lymphatic: Reports no additional hematologic/lymphatic complaints and Reports as per HPI Allergic/Immunologic: Reports no additional allergic/immunologic complaints and Reports as per HPI Physical Exam Vital Signs: Last Vital Signs Temp 97.9 F 07/17/24 08:00 Pulse 77 07/17/24 08:00 Resp 18 07/17/24 08:00 BP 126/87 07/17/24 08:00 Pulse Ox 97 07/17/24 08:00 O2 Del Method Room Air 07/17/24 08:00 O2 Flow Rate 2 07/13/24 07:00 BMI result Body Mass Index 27.4 Const General: comfortable and no acute distress Orientation/consciousness: patient oriented x3 HEENT Other: Unremarkable Head: Yes normal to inspection Neck Neck: Yes normal visual inspection Chest Chest palpation & inspection: normal inspection of the chest Resp Auscultation: clear to auscultation bilaterally Cardio Palpation: normal PMI Heart sounds: S1 normal heart sound present, S2 normal heart sound present, no gallops, no murmurs and no rubs GI Palpation (GI): Soft to palpation Back/Spine/Pelvis Other: unremarkable Skin General skin exam: no rashes or lesions noted Neuro General: patient oriented x3 Extrem General: Yes normal to inspection Psych Mental Status: mental status grossly normal Objective Labs and Meds 07/14/24 07:08 07/14/24 07:08 Progress Note: A&P Assessment and plan (1) Atrial fibrillation with rapid ventricular response: Status: Acute (2) Congestive heart failure: Status: Acute (3) Achalasia, esophageal: Status: Acute Plan In the echocardiogram, LVEF is 15-20%. No significant valvular findings. Mild pulmonary hypertension. Ascending aortic size 4 cm. Overall, suspected atrial fibrillation with rapid rate reading to tachycardia induced cardiomyopathy. This is complicated by the dysphagia issue. He is on beta-blockers and digoxin but there is an issue with taking medications orally as well as he is not able to swallow. Currently, atrial fibrillation is slightly rapid 110-120/Min. If necessary may have to switch him to intravenous medications. For anticoagulation, he is on subcutaneous Lovenox and eventually will need Eliquis. Cannot do ROSAMARIA/cardioversion in the setting as he cannot swallow. Clinically, no overt volume overload and hence no absolute indication for diuretics. Otherwise, it seems he needs GI procedures to deal with the achalasia. May need to be transferred to [facility] according to GI. They are arranging that. Discussed with daughter at the bedside. Time Spent With Patient Time: Total time managing care of this patient today ____ minutes. Progress Note: Quality Stroke Does the patient have a stroke diagnosis?: No Procedures Date of Service Date of Service: 07/17/24
--- NOTE | 2024-07-17 11:47 | P.PNGI_ITS ---
Subjective Subjective Date of Service: 07/17/24 Interval History: Patient has persistent issues, choking with PO liquid and solids appetite is otherwise good mildly SOB no chest pain EF 15-20% on ECHO with severe dyskinesis Critical Care Time (minutes): 0 Physical Exam 2 Vital Signs: Vital Signs: Last Vital Signs Temp 97.9 F 07/17/24 08:00 Pulse 77 07/17/24 08:00 Resp 18 07/17/24 08:00 BP 126/87 07/17/24 08:00 Pulse Ox 97 07/17/24 08:00 O2 Del Method Room Air 07/17/24 08:00 O2 Flow Rate 2 07/13/24 07:00 BMI result Body Mass Index 27.4 EXAM: GENERAL: The patient is frail VITAL SIGNS:see workflow HEENT: Nonicteric sclerae, PERRLA, EOMI. Oropharynx clear. Moist mucous membranes. Conjunctivae appear well perfused. No thyroid mass. CHEST: Chest wall is nontender. HEART: irregular rate and rhythm without murmurs. LUNGS: Clear to auscultation bilaterally. ABDOMEN: Soft, positive bowel sounds, nontender, no organomegaly.no flank tenderness SKIN: No rash, no excessive bruising, petechiae, or purpura. NEUROLOGIC: Cranial nerves II-XII intact without motor/sensory deficit. Psych: normal affect Objective Data Labs 07/14/24 07:08 07/14/24 07:[address] scan - chest: Attestation: I personally reviewed and interpreted this imaging study as follows: (degenerative spinal disease, dilated distal esophagus with luminal material) Procedures Date of Service Date of Service: 07/17/24 Progress Note: A&P Assessment and plan (1) Dysphagia: Status: Acute Assessment and Plan: 1/ Dysphagia, likely recurrence of achalasia, vs stricture, benign or malignant. higher risk of malignancy with achalasia PLAN: 1/ He needs EGD for further evalaution and if it is achalasia then botox would be the safest option given his co morbidities. he has severely compromised cardiac function which makes him high risk for anesthesia, most likely would need GA due to risk of aspiration but anesthesia here will not do this acuity of case. given his prior experience with the [facility] system, I called over there with Dr Jenkins and they agreed to take him for transfer. Time Spent With Patient Time: Total time managing care of this patient today ____ minutes. Quality Stroke Does the patient have a stroke diagnosis?: No VTE Prior VTE?: No VTE Risk Level:: Medical - moderate - high VTE Device Contraindication: N/A - Device Ordered VTE Drug Contraindication: Treatment Not Indicated
[2024-07-17 12:00] VITALS: BP 120/90; PULSE 88; RESP 18; TEMP 36.8; O2SAT 94
--- NOTE | 2024-07-17 13:12 | P.PNIM_ITS ---
Subjective Subjective Date of Service: 07/17/24 Interval History: Continues to have difficulty swallowing. Discussed case with GI and Cardiology Review of Systems Denies chest pain Denies shortness of breath Denies nausea vomiting diarrhea Denies fever chills Physical Exam 2 Vital Signs: Vital Signs: Last Vital Signs Temp 97.9 F 07/17/24 08:00 Pulse 77 07/17/24 08:00 Resp 18 07/17/24 08:00 BP 126/87 07/17/24 08:00 Pulse Ox 97 07/17/24 08:00 O2 Del Method Room Air 07/17/24 08:00 O2 Flow Rate 2 07/13/24 07:00 BMI result Body Mass Index 27.4 Const: Other: awake alert no acute distress Resp: Other: clear to auscultation bilaterally no rales rhonchi or wheezes Cardio: Other: no S4; positive S1-S2; no S3 murmurs rubs or gallops GI: Other: soft nontender nondistended normoactive bowel sounds Extrem: Other: no edema bilaterally Objective Data Active Medications Acetaminophen (Acetaminophen 325 Mg Tablet) 650 mg PO Q6H PRN PRN Reason: Pain, Mild 1-3,fever,headache Al Hydroxide/Mg Hydroxide (Magnesium Hydrox/Alum Hydrox 30 Ml Oral.Susp) 30 ml PO Q6H PRN PRN Reason: Dyspepsia Last Admin: 07/16/24 15:15 Dose: 30 ml Documented By: CHEO Calcium Carbonate (Calcium Carbonate 750 Mg Tab.Chew) 750 mg PO Q4H PRN PRN Reason: Heartburn Last Admin: 07/15/24 23:23 Dose: 750 mg Documented By: ABIEL Diazepam (Diazepam 10 Mg/2 Ml Cartridge) 5 mg IVPUSH Q4H PRN PRN Reason: anxiety Last Admin: 07/17/24 10:43 Dose: 5 mg Documented By: CHEO Digoxin (Digoxin 0.125 Mg Tablet) 0.125 mg PO DAILY [facility]; Protocol Last Admin: 07/17/24 08:33 Dose: 0.125 mg Documented By: CHEO Enoxaparin Sodium (Enoxaparin Sodium 100 Mg/Ml Syringe) 100 mg 1 mg/kg (100 mg) SUBCUT Q12H [facility] Last Admin: 07/17/24 12:52 Dose: 100 mg Documented By: CHEO Magnesium Hydroxide (Milk Of Magnesia 30 Ml Oral.Susp) 30 ml PO DAILY PRN PRN Reason: Constipation Melatonin (Melatonin 3 Mg Tablet) 6 mg PO BEDTIME PRN PRN Reason: Insomnia Last Admin: 07/14/24 21:10 Dose: 6 mg Documented By: ANTOINC Metoprolol Succinate (Metoprolol Succinate Er 25 Mg Tab.Er.24h) 25 mg PO DAILY [facility]; Protocol Last Admin: 07/17/24 08:33 Dose: 25 mg Documented By: CHEO Ondansetron HCl (Ondansetron Hcl 4 Mg/2 Ml Vial) 4 mg IVPUSH Q8H PRN PRN Reason: Nausea and Vomiting Pantoprazole Sodium (Pantoprazole Sodium 40 Mg/10 Ml Vial) 40 mg IVPUSH DAILY@0630 [facility] Last Admin: 07/17/24 05:57 Dose: 40 mg Documented By: DENILSONTYBAGlory Sodium Chloride (0.9 % Sodium Chloride Flush 3 Ml Syringe) 3 ml IVFLUSH QSHIFT [facility] Last Admin: 07/17/24 08:33 Dose: 3 ml Documented By: CHEO Labs 07/14/24 07:08 07/14/24 07:08 Assessment and Plan (1) Atrial fibrillation with rapid ventricular response: Status: Acute (2) Achalasia, esophageal: Status: Acute Plan This is a 64-year-old male with pertinent history of achalasia status post dilatation, BPH, mixed hyperlipidemia, history of CVA who presents to the emergency department for evaluation of difficulty swallowing and shortness of breath. 1.AFib with RVR, new onset -IV digoxin -continue beta-blockade avoid Cardizem - continue Lovenox pending GI input. Eliquis when appropriate -we will ultimately need ROSAMARIA and cardioversion once GI issue resolved 2..Acute decompensated congestive heart failure - mildly depressed EF - dig/ beta-yumiko as per Cardiology - follow clinically 3. Achalasia -discussed with GI; likely is safest remedy would be Botox however we will need general anesthesia for scope. GI feels anesthesia at this institution will not be comfortable with the procedure. Call placed to the transfer line at [facility]; we will reviewed data and decide 07/18. Kisha spoke with GI fellow; aware of case Lovenox Full code. Ongoing hospitalization for continued workup of acute decompensated heart failure with dysphagia Quality Stroke Does the patient have a stroke diagnosis?: No VTE Prior VTE?: No VTE Risk Level:: Medical - moderate - high VTE Device Contraindication: N/A - Device Ordered VTE Drug Contraindication: Treatment Not Indicated
--- NOTE | 2024-07-17 13:16 | P.DS_ITS ---
DS: Providers Provider Date of admission: 07/12/24 23:59 Primary care physician: Wu Underwood MD Consults: 07/12/24 22:42 Consult to Gastroenterology Routine Consulting Provider: Serenity Angel Reason for consultation: dysphagia 07/12/24 22:43 Consult to Cardiology Routine Consulting Provider: [facility] Reason for consultation: afiv with rvr Has provider been notified: Yes DS: Diagnosis Discharge Diagnosis (1) Atrial fibrillation with rapid ventricular response: Status: Acute (2) Achalasia, esophageal: Status: Acute DS: Summary Hospital Course Hospital Course: 64-year-old male with pertinent history of achalasia status post dilatation, BPH, mixed hyperlipidemia, history of CVA who presents to the emergency department for evaluation of difficulty swallowing and shortness of breath. Patient states he presented today as he had difficulty breathing specially when lying flat or sleeping. No history of CHF as per the patient. Does complain of bilateral lower extremity leg swelling. Patient also noticed that has heart was racing on the day of presentation. This has also never happened before and he has no history of irregular heart rhythm that he knows of. Patient states he has been having difficulty with swallowing both solids and liquids that has been ongoing for the past 1-1/2-2 months. This has happened before and he has required dilatation in the past. He is unable to tolerate p.o. intake due to difficulty swallowing. No pain while swallowing. No fever, chills, chest pain, abdominal pain, changes in urinary or bowel habits. In the emergency department, imaging with cardiomegaly and bilateral pleural effusions. Patient was found to be in AFib with RVR with heart rate in the 140s. BNP found to be elevated. Also imaging with moderately dilated esophagus with findings of distal esophageal narrowing/achalasia. Hospital Course Received Cardizem in ER but became hypotensive requiring admission to ICU. Cardizem drip DC and BP returned to normal. Transferred out of ICU to telemetry where his atrial fibrillation has had intermittent rate issues. He has been maintained on digoxin and beta blockade. Seen by Cardiology; will ultimately need ROSAMARIA with cardioversion however this is not feasible with a severe degree of achalasia. Seen in consult with GI who recommended possibility of Botox injection. GI recommended transfer to [facility] for cardiac anesthesia. Review pending Physical Exam Vital Signs: Vital Signs: Last Vital Signs Temp 98.2 F 07/17/24 12:00 Pulse 88 07/17/24 12:00 Resp 18 07/17/24 12:00 BP 120/90 H 07/17/24 12:00 Pulse Ox 94 07/17/24 12:00 O2 Del Method Room Air 07/17/24 12:00 O2 Flow Rate 2 07/13/24 07:00 BMI result Body Mass Index 27.4 Discharge Plan Discharge Referrals: Wu Underwood MD [Primary Care Provider] - 1 Week Discharge Medications: No Action atorvastatin 20 mg tablet 20 mg PO DAILY tamsulosin 0.4 mg capsule 0.4 mg PO DAILY 90 Days Qty: 90 3RF tadalafil [Cialis] 5 mg tablet 5 mg PO DAILY 90 Days Qty: 90 2RF Rx Instructions: [id number] [facility] [id number] Member [id number] Print Language: Azeri
[2024-07-17 16:00] VITALS: BP 111/85; PULSE 91; RESP 18; TEMP 36.3; O2SAT 96
[2024-07-17 19:22] VITALS: BP 131/73; PULSE 79; RESP 20; TEMP 37.1; O2SAT 95
[2024-07-18] VITALS (7 sets, daily range): BP systolic 106–147; BP diastolic 79–95; PULSE 74–98; RESP 16–20; TEMP 36.2–37.1; O2SAT 93–96
[2024-07-18] MEDS: Enoxaparin Sodium 100 MG/ML SYRINGE SUBCUT ×2 (02:00→14:12)
[2024-07-18] MEDS: Pantoprazole Sodium 40 MG/10 ML VIAL IVPUSH (05:50)
[2024-07-18] MEDS: Metoprolol Succinate ER 25 MG TAB.ER.24H PO (08:54)
[2024-07-18] MEDS: Digoxin 0.125 MG TABLET PO (08:54)
[2024-07-18] MEDS: 0.9 % Sodium Chloride Flush 3 ML SYRINGE IVFLUSH ×2 (08:55→17:28)
--- NOTE | 2024-07-18 13:33 | MHC.CM.PN ---
Per rounds, plan for pt. is transfer to [facility] for care there.
--- NOTE | 2024-07-18 18:17 | HO.PM.IMPN ---
Subjective Subjective Date of Service: 07/18/24 Interval History: Reports still experiencing regurgitation 15-20 minutes postprandial Vomitus thick Complains of substernal burning and GERD like symptoms Minimally tolerating p.o. intake Denies SOB or difficulty breathing No fever, chills No chest pain pressure Review of Systems Review of Systems: Yes all other systems are reviewed and are negative Physical Exam Vital Signs: Vital Signs: Last Vital Signs Temp 98.4 F 07/18/24 16:00 Pulse 82 07/18/24 16:00 Resp 18 07/18/24 16:00 BP 147/92 H 07/18/24 16:00 Pulse Ox 95 07/18/24 16:00 O2 Del Method Room Air 07/18/24 16:00 O2 Flow Rate 2 07/13/24 07:00 BMI result Body Mass Index 27.4 General: AOx3, no acute distress Resp: CTA bilaterally CVS: Irregularly irregular rhythm GI: +BS, NT, no distention Skin: Warm, dry Neuro: Cranial nerves II-XII grossly intact bilaterally. Motor grossly intact bilaterally Extremities: No edema Psych: Appropriate affect Objective Data Active Medications Acetaminophen (Acetaminophen 325 Mg Tablet) 650 mg PO Q6H PRN PRN Reason: Pain, Mild 1-3,fever,headache Al Hydroxide/Mg Hydroxide (Magnesium Hydrox/Alum Hydrox 30 Ml Oral.Susp) 30 ml PO Q6H PRN PRN Reason: Dyspepsia Last Admin: 07/16/24 15:15 Dose: 30 ml Documented By: CHEO Calcium Carbonate (Calcium Carbonate 750 Mg Tab.Chew) 750 mg PO Q4H PRN PRN Reason: Heartburn Last Admin: 07/15/24 23:23 Dose: 750 mg Documented By: ABIEL Diazepam (Diazepam 10 Mg/2 Ml Cartridge) 5 mg IVPUSH Q4H PRN PRN Reason: anxiety Last Admin: 07/17/24 10:43 Dose: 5 mg Documented By: CHEO Digoxin (Digoxin 0.125 Mg Tablet) 0.125 mg PO DAILY REPLACED BY [facility]; Protocol Last Admin: 07/18/24 08:54 Dose: 0.125 mg Documented By: ANTONIO Enoxaparin Sodium (Enoxaparin Sodium 100 Mg/Ml Syringe) 100 mg 1 mg/kg (100 mg) SUBCUT Q12H REPLACED BY [facility] Last Admin: 07/18/24 14:12 Dose: 100 mg Documented By: ANTONIO Magnesium Hydroxide (Milk Of Magnesia 30 Ml Oral.Susp) 30 ml PO DAILY PRN PRN Reason: Constipation Melatonin (Melatonin 3 Mg Tablet) 6 mg PO BEDTIME PRN PRN Reason: Insomnia Last Admin: 07/14/24 21:10 Dose: 6 mg Documented By: ANTOINC Metoprolol Succinate (Metoprolol Succinate Er 25 Mg Tab.Er.24h) 25 mg PO DAILY REPLACED BY [facility]; Protocol Last Admin: 07/18/24 08:54 Dose: 25 mg Documented By: ANTONIO Ondansetron HCl (Ondansetron Hcl 4 Mg/2 Ml Vial) 4 mg IVPUSH Q8H PRN PRN Reason: Nausea and Vomiting Pantoprazole Sodium (Pantoprazole Sodium 40 Mg/10 Ml Vial) 40 mg IVPUSH DAILY@0630 REPLACED BY [facility] Last Admin: 07/18/24 05:50 Dose: 40 mg Documented By: KINGSLEY Sodium Chloride (0.9 % Sodium Chloride Flush 3 Ml Syringe) 3 ml IVFLUSH QSHIFT REPLACED BY [facility] Last Admin: 07/18/24 17:28 Dose: 3 ml Documented By: ANTONIO Labs 07/14/24 07:08 07/14/24 07:08 Assessment and Plan (1) Atrial fibrillation with rapid ventricular response: Status: Acute (2) Congestive heart failure: Status: Acute (3) Achalasia, esophageal: Status: Acute Plan This is a 64-year-old male with pertinent history of achalasia status post dilatation, BPH, mixed hyperlipidemia, history of CVA who presents to the emergency department for evaluation of difficulty swallowing and shortness of breath. AFib with RVR, new onset Initially placed on diltiazem drip in the ED where pt became hypotensive and admitted to the ICU for further treatment and monitoring Continue digoxin and continue beta-blockade; avoid Cardizem Continue Lovenox pending GI input. Eliquis when appropriate Pt will ultimately need ROSAMARIA and cardioversion once GI issue resolved Acute decompensated congestive heart failure Mildly depressed EF Dig/beta-yumiko as per Cardiology Echocardiogram on 07/12 showed LVEF of 15-20% Achalasia GI recommends safest remedy would be Botox, however will need general anesthesia for scope. GI feels anesthesia at this institution will not be comfortable with the procedure. Call placed to the transfer line at [facility] on 07/17 and Kisha spoke to GI fellow who is aware of case Accepted on 07/18 and will likely take 2-3 days before bed is available CVA/HLD Continue statin BPH Continue Flomax Lovenox Full code. Ongoing hospitalization for continued workup of acute decompensated heart failure with dysphagia Quality Stroke Does the patient have a stroke diagnosis?: No VTE Prior VTE?: No VTE Risk Level:: Medical - moderate - high VTE Device Contraindication: N/A - Device Ordered VTE Drug Contraindication: Treatment Not Indicated
[2024-07-19] MEDS: Enoxaparin Sodium 100 MG/ML SYRINGE SUBCUT ×2 (01:06→12:35)
[2024-07-19] MEDS: 0.9 % Sodium Chloride Flush 3 ML SYRINGE IVFLUSH ×2 (01:06→07:43)
[2024-07-19 03:34] VITALS: BP 138/91; PULSE 67; RESP 16; TEMP 36.6; O2SAT 95
[2024-07-19 07:33] VITALS: BP 114/66; PULSE 68; RESP 16; TEMP 36.7; O2SAT 97
[2024-07-19 07:42] VITALS: BP 114/66; PULSE 68
[2024-07-19] MEDS: Digoxin 0.125 MG TABLET PO (07:42)
[2024-07-19] MEDS: Metoprolol Succinate ER 25 MG TAB.ER.24H PO (07:42)
[2024-07-19 10:15] LABS: Anion Gap 13 (12-20); Blood Urea Nitrogen 17 mg/dL (9-16); Calcium 9.1 mg/dL (8.4-10.2); Carbon Dioxide 23 mmol/L (22-29); Chloride 107 mmol/L (96-108); Creatinine Clr Calc Pharmacy 103.9; Estimated Glomerular Filt Rate > 60; Glucose Fasting 90 mg/dL (60-99); Potassium 4.2 mmol/L (3.3-5.1); Sodium 139 mmol/L (135-145)
[2024-07-19 11:32] VITALS: BP 135/94; PULSE 106; RESP 16; TEMP 36.3; O2SAT 96
--- NOTE | 2024-07-19 12:49 | HO.PM.IMPN ---
Subjective Subjective Date of Service: 07/19/24 Interval History: ongoing difficulty swallowing no palpitations persistent AF in 90s-100s Review of Systems Review of Systems: Yes all other systems are reviewed and are negative Physical Exam Vital Signs: Vital Signs: Last Vital Signs Temp 97.3 F 07/19/24 11:32 Pulse 106 H 07/19/24 11:32 Resp 16 07/19/24 11:32 BP 135/94 H 07/19/24 11:32 Pulse Ox 96 07/19/24 11:32 O2 Del Method Room Air 07/19/24 11:32 O2 Flow Rate 2 07/13/24 07:00 BMI result Body Mass Index 27.4 Gen: in no acute distress HEENT: sclera anicteric, moist mucus membranes Neck: supple Lungs: clear to auscultation bilaterally Heart: irregular, no murmurs Abd: soft, non-tender, non-distended Ext: no edema Skin: warm/well-perfused Neuro: alert and oriented x3, no focal findings Psych: appropriate affect Objective Data Active Medications Acetaminophen (Acetaminophen 325 Mg Tablet) 650 mg PO Q6H PRN PRN Reason: Pain, Mild 1-3,fever,headache Al Hydroxide/Mg Hydroxide (Magnesium Hydrox/Alum Hydrox 30 Ml Oral.Susp) 30 ml PO Q6H PRN PRN Reason: Dyspepsia Last Admin: 07/16/24 15:15 Dose: 30 ml Documented By: CHEO Calcium Carbonate (Calcium Carbonate 750 Mg Tab.Chew) 750 mg PO Q4H PRN PRN Reason: Heartburn Last Admin: 07/15/24 23:23 Dose: 750 mg Documented By: ABIEL Diazepam (Diazepam 10 Mg/2 Ml Cartridge) 5 mg IVPUSH Q4H PRN PRN Reason: anxiety Last Admin: 07/17/24 10:43 Dose: 5 mg Documented By: CHEO Digoxin (Digoxin 0.125 Mg Tablet) 0.125 mg PO DAILY PENDING SALE TO [facility]; Protocol Last Admin: 07/19/24 07:42 Dose: 0.125 mg Documented By: ANTONIO Enoxaparin Sodium (Enoxaparin Sodium 100 Mg/Ml Syringe) 100 mg 1 mg/kg (100 mg) SUBCUT Q12H PENDING SALE TO [facility] Last Admin: 07/19/24 12:35 Dose: 100 mg Documented By: ANTONIO Magnesium Hydroxide (Milk Of Magnesia 30 Ml Oral.Susp) 30 ml PO DAILY PRN PRN Reason: Constipation Melatonin (Melatonin 3 Mg Tablet) 6 mg PO BEDTIME PRN PRN Reason: Insomnia Last Admin: 07/14/24 21:10 Dose: 6 mg Documented By: ANTOINC Metoprolol Succinate (Metoprolol Succinate Er 25 Mg Tab.Er.24h) 25 mg PO DAILY [facility]; Protocol Last Admin: 07/19/24 07:42 Dose: 25 mg Documented By: ANTONIO Ondansetron HCl (Ondansetron Hcl 4 Mg/2 Ml Vial) 4 mg IVPUSH Q8H PRN PRN Reason: Nausea and Vomiting Sodium Chloride (0.9 % Sodium Chloride Flush 3 Ml Syringe) 3 ml IVFLUSH QSHIFT [facility]NE[facility] Last Admin: 07/19/24 07:43 Dose: 3 ml Documented By: ANTONIO Labs 07/14/24 07:08 07/19/24 09:40 Labs: Laboratory Results - last 24 hr 07/19/24 09:40 Anion Gap 13 Estim Creat Clear Calc 103.9 Estimated GFR > 60 Fasting Glucose 90 Calcium 9.1 Magnesium 2.0 Assessment and Plan (1) Atrial fibrillation with rapid ventricular response: Status: Acute (2) Congestive heart failure: Status: Acute (3) Achalasia, esophageal: Status: Acute Plan d8 for 64yo M with achalasia with history of dilation, BPH, HLD, hx CVA presenting with dysphagia and dyspnea, found to have AF/RVR and admitted to ICU due to hypotension on diltiazem drip stepped down to telemetry on 07/13/24 awaiting [facility] bed for dilation given high-risk for anesthesia AF/RVR, new-onset - continue digoxin + metoprolol succinate - continue enoxaparin; eventual transition to apixaban after any operative intervention - will eventually need ROSAMARIA-guided cardioversion ADHF, severely reduced EF - TTE 07/12/24: - The left ventricular systolic function is severely decreased. The visually estimated ejection fraction is between 15-20%. - No obvious valvular pathology seen on this study. - Mild pulmonary hypertension is present. - There is mild dilatation of the ascending aorta measuring 4.00 cm. - continue metoprolol succinate, avoid diltiazem - 5 beats of VT just now, conitnue metoprolol succinate achalasia - will need EGD/dilation/botulinum toxin but needs high-risk anethesia - call placed to the transfer line at [facility] on 07/[address] Beard spoke to GI fellow there; accepted 07/18 and awaiting bed hx CVA/HLD - statin VTE ppx - enoxaparin dispo - awaiting bed at [facility] In my clinical judgment, the patient requires continued inpatient hospitalization for the following reasons: AF/RVR, achalasia, awaiting transfer Total time managing care of this patient today: 40 minutes. Quality Stroke Does the patient have a stroke diagnosis?: No VTE Prior VTE?: No VTE Risk Level:: Medical - moderate - high VTE Device Contraindication: N/A - Device Ordered VTE Drug Contraindication: Treatment Not Indicated
--- NOTE | 2024-07-19 15:01 | PM.DS ---
DS: Providers Provider Date of Service: 07/19/24 Date of admission: 07/12/24 23:59 Date of discharge: 07/19/24 Primary care physician: Wu Underwood MD Consults: 07/12/24 22:42 Consult to Gastroenterology Routine Consulting Provider: Serenity Angel Reason for consultation: dysphagia 07/12/24 22:43 Consult to Cardiology Routine Consulting Provider: [facility] Reason for consultation: afiv with rvr Has provider been notified: Yes DS: Diagnosis Discharge Diagnosis (1) Atrial fibrillation with rapid ventricular response: Status: Acute (2) Congestive heart failure: Status: Acute (3) Achalasia, esophageal: Status: Acute (4) HFrEF (heart failure with reduced ejection fraction): Status: Acute DS: Summary Hospital Course Hospital Course: From the history and physical by the admitting hospitalist, Petty Burroughs MD, 07/12/24: This is a 64-year-old male with pertinent history of achalasia status post dilatation, BPH, mixed hyperlipidemia, history of CVA who presents to the emergency department for evaluation of difficulty swallowing and shortness of breath. Patient states he presented today as he had difficulty breathing specially when lying flat or sleeping. No history of CHF as per the patient. Does complain of bilateral lower extremity leg swelling. Patient also noticed that has heart was racing on the day of presentation. This has also never happened before and he has no history of irregular heart rhythm that he knows of. Patient states he has been having difficulty with swallowing both solids and liquids that has been ongoing for the past 1-1/2-2 months. This has happened before and he has required dilatation in the past. He is unable to tolerate p.o. intake due to difficulty swallowing. No pain while swallowing. No fever, chills, chest pain, abdominal pain, changes in urinary or bowel habits. In the emergency department, imaging with cardiomegaly and bilateral pleural effusions. Patient was found to be in AFib with RVR with heart rate in the 140s. BNP found to be elevated. Also imaging with moderately dilated esophagus with findings of distal esophageal narrowing/achalasia. 64yo M with achalasia with history of dilation, BPH, HLD, hx CVA presenting with dysphagia and dyspnea, found to have AF/RVR and admitted to ICU on the day of admission to the hospitalist service due to hypotension on diltiazem drip for AF. He was stabilized in the ICU then stepped down to telemetry on 07/13/24. Hospital course by problem: AF/RVR, new-onset - continue digoxin + metoprolol succinate - continue enoxaparin; eventual transition to apixaban after any operative intervention - will eventually need ROSAMARIA-guided cardioversion but must have achalasia addressed first ADHF, severely reduced EF - TTE 07/12/24: - The left ventricular systolic function is severely decreased. The visually estimated ejection fraction is between 15-20%. - No obvious valvular pathology seen on this study. - Mild pulmonary hypertension is present. - There is mild dilatation of the ascending aorta measuring 4.00 cm. - continue metoprolol succinate, avoid diltiazem - 5 beats of VT just now, continue metoprolol succinate achalasia - will need EGD/dilation/botulinum toxin but needs high-risk anesthesia - call placed to the transfer line at [facility] on 07/[address] Beard spoke to GI fellow there; accepted 07/18 and transferred 07/19/24 Time Attestation Discharge Coordination Time (in mins): 45 Quality: Safe Use of Opioids Does Pt have an Active Cancer Diagnosis on the Problem List?: No Quality: Stroke Does the patient have a stroke diagnosis?: No Physical Exam Vital Signs: Vital Signs: Last Vital Signs Temp 97.3 F 07/19/24 11:32 Pulse 106 H 07/19/24 11:32 Resp 16 07/19/24 11:32 BP 135/94 H 07/19/24 11:32 Pulse Ox 96 07/19/24 11:32 O2 Del Method Room Air 07/19/24 11:32 O2 Flow Rate 2 07/13/24 07:00 BMI result Body Mass Index 27.4 Gen: in no acute distress HEENT: sclera anicteric, moist mucus membranes Neck: supple Lungs: clear to auscultation bilaterally Heart: irregular, no murmurs Abd: soft, non-tender, non-distended Ext: no edema Skin: warm/well-perfused Neuro: alert and oriented x3, no focal findings Psych: appropriate affect DS: Data Data Completed and Pending Completed studies during hospitalization [Text1]: Laboratory Results WBC 6.1 X10*3/uL (4.8-10.8) 05/08/25 07:08 RBC 4.59 X10*6/uL (4.60-5.80) L 07/14/24 07:08 Hgb 14.3 g/dl (14.0-18.0) 07/14/24 07:08 Hct 41.9 % (42.0-52.0) L 07/14/24 07:08 MCV 91.3 fL (80.0-98.0) 07/14/24 07:08 MCH 31.2 pg (27.0-33.0) 07/14/24 07:08 MCHC 34.1 g/dl (31.0-36.0) 07/14/24 07:08 RDW 13.9 % (11.0-16.0) 07/14/24 07:08 Plt Count 101 X10*3/uL (160-400) L 07/14/24 07:08 MPV 12.7 fL (9.4-12.4) H 07/14/24 07:08 Immature Gran % (Auto) 0.2 % (0.0-0.4) 07/14/24 07:08 Neut % (Auto) 66.4 % (45-73) 07/14/24 07:08 Lymph % (Auto) 23.3 % (20-40) 07/14/24 07:08 [place] % (Auto) 6.9 % (2-11) 07/14/24 07:08 Eos % (Auto) 2.5 % (0-4) 07/14/24 07:08 Baso % (Auto) 0.7 % (0-2) 07/14/24 07:08 Lymph # (Auto) 1.4 X10*3/uL (1.2-4.9) 07/14/24 07:08 [place] # (Auto) 0.4 X10*3/uL (0.1-1.2) 07/14/24 07:08 Eos # (Auto) 0.2 X10*3/uL (0.0-0.4) 07/14/24 07:08 Baso # (Auto) 0.0 X10*3/uL (0.0-0.2) 07/14/24 07:08 Abs Immat Gran (auto) 0.01 X10*3/uL (0.00-0.03) 07/14/24 07:08 Absolute Neuts (auto) 4.1 x10*3/uL (2.0-8.3) 07/14/24 07:08 Absolute Nucleated RBC 0.000 X10*3/uL (0.0-0.012) 07/14/24 07:08 Nucleated RBC % (auto) 0.0 /100WBC (0.0-0.2) 07/14/24 07:08 APTT 28.6 SEC (26.0-36.8) 07/12/24 18:03 Sodium 139 mmol/L (135-145) 07/19/24 09:40 Potassium 4.2 mmol/L (3.3-5.1) 07/19/24 09:40 Chloride 107 mmol/L (96-108) 07/19/24 09:40 Carbon Dioxide 23 mmol/L (22-29) 07/19/24 09:40 Anion Gap 13 (12-20) 07/19/24 09:40 BUN 17 mg/dL (9-16) H 07/19/24 09:40 Creatinine 0.87 mg/dL (0.5-1.4) 07/19/24 09:40 Estim Creat Clear Calc 103.9 07/19/24 09:40 Estimated GFR > 60 07/19/24 09:40 POC Glucose 87 mg/dL (60-115) 07/15/24 15:59 Random Glucose 88 mg/dL (60-115) 07/14/24 07:08 Fasting Glucose 90 mg/dL (60-99) 07/19/24 09:40 Calcium 9.1 mg/dL (8.4-10.2) 07/19/24 09:40 Phosphorus 2.5 mg/dL (2.7-4.5) L 07/13/24 04:24 Magnesium 2.0 mg/dL (1.6-2.6) 07/19/24 09:40 Total Bilirubin 2.9 mg/dL (0.0-1.0) H 07/13/24 07:29 Direct Bilirubin 0.5 mg/dL (0.0-0.5) 07/13/24 07:29 AST 26 U/L (5-37) 07/13/24 07:29 ALT 29 U/L (0-40) 07/13/24 07:29 Alkaline Phosphatase 54 U/L (39-117) 07/13/24 07:29 Troponin I High Sens 19.7 ng/L (<3.5-35.0) 07/13/24 00:44 B-Natriuretic Peptide 726 pg/mL (<100) H 07/12/24 18:03 Total Protein 5.9 g/dL (6.5-8.0) L 07/13/24 07:29 Albumin 3.9 g/dL (3.5-5.0) 07/13/24 07:29 Lipase 27 U/L (8-78) 07/12/24 18:03 TSH 1.04 uIU/mL (0.32-4.0) 07/13/24 04:24 Discharge Plan Discharge Anticipated Discharge Date/Time: 07/19/24 14:53 Patient Disposition: Xfer Acute Care Hospital Discharge Diagnosis: achalasia heart failure atrial fibrillation Referrals: Wu Underwood MD [Primary Care Provider] - 1 Week Discharge Medications: New digoxin 125 mcg (0.125 mg) Tablet 0.125 mg PO DAILY Qty: 1 0RF Protocol: Hold for HR <: HOLD for HR < : 60 metoprolol succinate 25 mg Tablet Extended Release 24 Hr 25 mg PO DAILY Qty: 1 0RF Protocol: Hold for SBP/HR < HOLD for SBP < : 90 HOLD for HR < : 60 enoxaparin 100 mg/mL Syringe 100 mg subcut Q12H Qty: 1 0RF Continued atorvastatin 20 mg tablet 20 mg PO DAILY tamsulosin 0.4 mg capsule 0.4 mg PO DAILY 90 Days Qty: 90 3RF tadalafil [Cialis] 5 mg tablet 5 mg PO DAILY 90 Days Qty: 90 2RF Rx Instructions: [id number] [facility] [id number] Member [id number] Discharge Orders: Discharge Order (Routine); Ordered 07/19/24 Ordered By: Carlyle Shoemaker Diet: clear liquids Activity on Discharge: As tolerated Stand Alone Forms: Patient Portal Discharge page Print Language: French Care Plan Goals: definitive care of achalasia Health Concerns: achalasia heart failure atrial fibrillation Plan of Treatment: transfer to [facility] for high-risk anesthesia for esophageal dilation and then ROSAMARIA-guided cardioversion Assessment: See Discharge Summary.
--- NOTE | 2024-07-19 15:16 | MHC.CM.PN ---
Pt is being medically transferred to [facility].
[2024-07-19 15:32] VITALS: BP 99/67; PULSE 96; RESP 18; TEMP 36.3; O2SAT 97
[2024-07-19 15:52] VITALS: BP 118/78
== END 2024-07-19 16:23 | disposition short-term general hospital (02) | DRG 308 ==
LOC: HO.ED 21:55 → HO.EDOVER 07-13 → HO.ICU 07-13 00:04 → HO.IMC 07-13 16:26
PROVIDERS: Hospitalist; Physician Assistant; Physician Assistant Medical; Student in an Organized Health Care Education/Training Program; Admitting Provider Student in an Organized Health Care Education/Training Program; Emergency Provider Internal Medicine; PCP Internal Medicine; Visit Provider Family Medicine
DX: I48.91 Unspecified atrial fibrillation (principal); I50.31 Acute diastolic (congestive) heart failure; R57.0 Cardiogenic shock; I27.20 Pulmonary hypertension, unspecified; K22.0 Achalasia of cardia; I42.9 Cardiomyopathy, unspecified; E78.2 Mixed hyperlipidemia; E86.0 Dehydration; I95.2 Hypotension due to drugs; T46.1X5A Adverse effect of calcium-channel blockers, initial encounter; K21.9 Gastro-esophageal reflux disease without esophagitis; N40.0 Benign prostatic hyperplasia without lower urinary tract symptoms; Z86.73 Personal history of transient ischemic attack (TIA), and cerebral infarction without residual deficits; Z87.891 Personal history of nicotine dependence; Z79.899 Other long term (current) drug therapy
CPT/HCPCS: 36415; 71250; 74176; 80048; 80053; 80076; 82947; 83690; 83735; 83880; 84100; 84443; 84484; 85025; 85730; 93005; 93306; 93970; 99285; J1160; J1610; J1650; J2470; J3360; J3475; P9047

== ENCOUNTER → 2024-07-12 18:18 | Outpatient (BNV) | payer MEDICARE, SELFPAY | PROVIDERS: Emergency Provider Internal Medicine; PCP Internal Medicine; Visit Provider Student in an Organized Health Care Education/Training Program | DX: K22.2 Esophageal obstruction (principal) | CPT/HCPCS: 71250; 74176 ==

== ENCOUNTER → 2024-07-12 22:41 | Outpatient (BNV) | payer MEDICARE, SELFPAY | PROVIDERS: Admitting Provider Student in an Organized Health Care Education/Training Program; Emergency Provider Internal Medicine; PCP Internal Medicine; Visit Provider Student in an Organized Health Care Education/Training Program | DX: I48.91 Unspecified atrial fibrillation (principal); K22.0 Achalasia of cardia; I50.9 Heart failure, unspecified | CPT/HCPCS: 99223; 99499 ==

== ENCOUNTER 2024-07-12 23:59 | Outpatient (BNV) | payer MEDICARE, SELFPAY | END 2024-07-13 02:00 | PROVIDERS: Admitting Provider Student in an Organized Health Care Education/Training Program; Emergency Provider Internal Medicine; PCP Internal Medicine; Visit Provider Radiology Diagnostic Radiology | DX: R60.0 Localized edema (principal) | CPT/HCPCS: 93970 ==

== ENCOUNTER 2024-07-12 23:59 | Outpatient (BNV) | payer MEDICARE, SELFPAY | END 2024-07-13 07:00 | PROVIDERS: Admitting Provider Student in an Organized Health Care Education/Training Program; Emergency Provider Internal Medicine; PCP Internal Medicine; Visit Provider Internal Medicine | DX: I27.20 Pulmonary hypertension, unspecified (principal); I51.7 Cardiomegaly; I35.8 Other nonrheumatic aortic valve disorders; I36.1 Nonrheumatic tricuspid (valve) insufficiency | CPT/HCPCS: 93306 ==

== ENCOUNTER → 2024-07-12 23:59 | Outpatient (BNV) | payer MEDICARE, SELFPAY | PROVIDERS: Admitting Provider Student in an Organized Health Care Education/Training Program; Emergency Provider Internal Medicine; PCP Internal Medicine; Visit Provider Internal Medicine | DX: I48.91 Unspecified atrial fibrillation (principal); I50.9 Heart failure, unspecified; K22.0 Achalasia of cardia | CPT/HCPCS: 93010; 99223 ==

== ENCOUNTER → 2024-07-12 23:59 | Outpatient (BNV) | payer MEDICARE, SELFPAY | PROVIDERS: Admitting Provider Student in an Organized Health Care Education/Training Program; Emergency Provider Internal Medicine; PCP Internal Medicine; Visit Provider Internal Medicine Critical Care Medicine | DX: I48.91 Unspecified atrial fibrillation (principal); I50.9 Heart failure, unspecified; K22.0 Achalasia of cardia; R39.9 Unspecified symptoms and signs involving the genitourinary system; N52.9 Male erectile dysfunction, unspecified; R68.82 Decreased libido | CPT/HCPCS: 99232; 99291 ==

== ENCOUNTER → 2024-07-12 23:59 | Outpatient (BNV) | payer MEDICARE, SELFPAY | PROVIDERS: Admitting Provider Student in an Organized Health Care Education/Training Program; Emergency Provider Internal Medicine; PCP Internal Medicine; Visit Provider Internal Medicine | DX: R13.10 Dysphagia, unspecified (principal); K22.0 Achalasia of cardia; I48.91 Unspecified atrial fibrillation; I50.9 Heart failure, unspecified | CPT/HCPCS: 99222 ==

== ENCOUNTER 2024-10-10 13:31 | Outpatient (REF) | payer MEDICARE, SELFPAY ==
[2024-10-10 15:23] LABS: Prostate Specific Antigen 0.64 ng/mL (<0.05-4.0)
== END 2024-10-10 13:32 | disposition home or self-care (01) ==
LOC: HO.LAB 13:31
PROVIDERS: PCP Internal Medicine; Visit Provider Nurse Practitioner Family
DX: E11.69 Type 2 diabetes mellitus with other specified complication (principal); N52.1 Erectile dysfunction due to diseases classified elsewhere; Z12.5 Encounter for screening for malignant neoplasm of prostate
CPT/HCPCS: 36415; 84153

== ENCOUNTER 2024-10-11 13:15 | Outpatient (AMB) | payer MEDICARE, SELFPAY ==
--- NOTE | 2024-10-11 13:30 | A.OFFVIS_ITS ---
Intake Visit Reasons: 6m/PSA/PVR Intake Note: Patient is present for 6M/PSA/PVR Urology Medication:TAMSULOSIN,TADALAFIL Antibiotic Allergy:NONE Blood Thinner:NONE TODAY'S PVR:0ML'S [employer] R12 Developer Required: No Allergies No Known Allergies Allergy (Verified 10/11/24 14:25) Medication List - Last Reconciled 10/11/24 by JESSE Petersen atorvastatin 20 mg PO DAILY digoxin 0.125 mg See Protocol PO DAILY enoxaparin 100 mg subcut Q12H metoprolol succinate ER 25 mg See Protocol PO DAILY tadalafil (Cialis) 5 mg PO DAILY 90 days tamsulosin 0.4 mg PO DAILY 90 days HPI Comments Details: Kali is a 63-year-old male patient. He has a past medical history of anxiety, hypercholesteremia, posterior circulation stroke, memory difficulty, and cervical radiculopathy. He presents to the office today for follow-up of his lower urinary tract symptoms and erectile dysfunction. In discussion with the patient today he reports to be doing and feeling well. He reports compliance with Flomax and low-dose Cialis as prescribed. He denies having had any bothersome urinary issues however he does note lump to right testicle. On assessment today the penis is circumcised small right-sided epididymal head cysts noted otherwise no open areas, drainage, lesions, or masses palpated. No pain elicited on examination. He denies having had any testicular scrotal discomfort. We did discussed potential causes of epididymal head cysts as well as further treatment options and risks and benefits of these treatment options. In office urinalysis results reviewed with the patient today PVR 0 mL. Previous workup has included a retroperitoneal ultrasound 06/30 noting bilateral kidneys with no calculi, lesions, and or hydronephrosis The bladder is well distended and normal. Bilateral ureteral jets are demonstrated. Pre void bladder volume is approximately 250 mL. Postvoid bladder volume is approximately 20 mL. The prostate measures approximately 33 mL. Previous labs included testosterone, free testosterone, and PSA as noted and trended below: PSA 06/30 0.4, 10/31 0.6 Total testosterone 06/30 583 Free testosterone 06/30 76.4 He currently denies any bothersome urinary issues or concerns. He denies urinary urgency, urinary frequency, incontinence, nocturia, hematuria, dysuria, foul smelling urine, changes to urinary stream, flank pain, fever, and or chills. He is happy with his current voiding parameters. He otherwise offers no other issues or concerns at this time. [facility] Medical History Low libido Erectile dysfunction Lower urinary tract symptoms Memory difficulty Anxiety Hypercholesteremia Achalasia Posterior circulation stroke Cervical radiculopathy Surgical History History of arthroscopy History of back surgery Family History (Updated 07/13/24 @ 09:41 by Jose Chicas MD) Father Heart problem Social History Household Members: Family and Children Housing: Apartment Do you presently have visiting nurse or other home services: No Patient Tobacco Use Status: Former Tobacco user Tobacco use type: Cigarette Cigarettes Per Day: 10 Years Smoked: 10 Review of Systems Const Reports no additional complaints Eyes Details: 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 ENT Reports no additional complaints Card Reports as per HPI Resp Reports no additional complaints GI Reports no additional complaints Reports as per HPI Musc Reports as per HPI Neuro Reports as per HPI Psych Reports no additional complaints Endo Reports no additional complaints Master/Lymph Reports no additional complaints Aller/Immun Reports no additional complaints Physical Exam Const General: cooperative, healthy appearing, comfortable, no acute distress, well developed, alert and awake Orientation/consciousness: patient oriented x3 Limitations: no limitations HEENT Head: Yes normal to inspection, Yes normocephalic and Yes atraumatic Ears: hearing grossly normal bilaterally Eyes General: appearance normal, both eyes and all related structures Neck Neck: Yes normal visual inspection and Yes trachea midline Chest Chest palpation & inspection: normal inspection of the chest Resp Effort & Inspection: normal respiratory effort and able to speak in complete sentences Cardio Rate: regular rate GI Inspection: Yes normal to inspection General: Yes no CVA tenderness Back/Spine/Pelvis Back: no CVA tenderness Skin General skin exam: no rashes or lesions noted Neuro General: patient oriented x3 Extrem General: Yes normal to inspection Psych Appearance: grossly normal and well kempt Mental Status: mental status grossly normal Speech and movement: Normal speech and movement present and Clear speech present Affect: normal affect Attitude: cooperative Thought process: Normal thought process present Thought content: Normal thought content present Insight: Fair insight present (Psych) Judgement: Fair judgement present (Psych) Office Procedures Post Void Residual Post Residual Void Post Void Residual (PVR): 0 [id number] Void Residual by ultrasound Results AMB Urinalysis, Automated UA Leukoctes 0 Chuy/uL Last Edit by Mike Alcantara [facility] on 10/11/24 13:58 UA Nitrite Negative Last Edit by Mike Alcantara [facility] on 10/11/24 13:58 UA Urobilinogen 0.2 mg/dL Last Edit by Mike Alcantara [facility] on 10/11/24 13:5 8 UA Protein 15 mg/dL Last Edit by Mike Alcantara [facility] on 10/11/24 13:58 UA pH 6.0 Last Edit by Mike Alcantara [facility] on 10/11/24 13:58 UA Blood 80 Gabino/uL Last Edit by Mike Alcantara [facility] on 10/11/24 13:58 UA Specific Shreve 1.015 Last Edit by Mike Alcantara [facility] on 10/11/24 13: 58 UA Ketone Negative Last Edit by Mike Alcantara [facility] on 10/11/24 13:58 UA Bilirubin 0 mg/dL Last Edit by Mike Alcantara [facility] on 10/11/24 13:58 UA Glucose 1000 mg/dL Last Edit by Mike Alcantara [facility] on 10/11/24 13:58 AMB Urinalysis, Automated UA Leukoctes 0 Chuy/uL Last Edit by Mike Alcantara [facility] on 10/11/24 14:04 UA Nitrite Negative Last Edit by Mike Alcantara [facility] on 10/11/24 14:04 UA Urobilinogen 0.2 mg/dL Last Edit by Mike Alcantara [facility] on 10/11/24 14:0 4 UA Protein 15 mg/dL Last Edit by Mike Alcantara [facility] on 10/11/24 14:04 UA pH 6.0 Last Edit by Mike Alcantara [facility] on 10/11/24 14:04 UA Blood 80 Gabino/uL Last Edit by AREN Knowles on 10/11/24 14:04 UA Specific Shreve 1.015 Last Edit by AREN Knowles on 10/11/24 14: 04 UA Ketone Negative Last Edit by AREN Knowles on 10/11/24 14:04 UA Bilirubin 0 mg/dL Last Edit by AREN Knowles on 10/11/24 14:04 UA Glucose 1000 mg/dL Last Edit by AREN Knowles on 10/11/24 14:04 Results Reviewed Results Reviewed: Laboratory Last Values Urine pH (Auto) 6.0 10/11/24 13:56 Specific Shreve (Auto) 1.015 10/11/24 13:56 Urine Protein (Auto) 15 mg/dL 10/11/24 13:56 Glucose (UA)(Auto) 1000 mg/dL 10/11/24 13:56 Urine Ketones (Auto) Negative 10/11/24 13:56 Urine Blood (Auto) 80 Gabino/uL 10/11/24 13:56 Urine Nitrite (Auto) Negative 10/11/24 13:56 Urine Bilirubin (Auto) 0 mg/dL 10/11/24 13:56 Urine Urobilinogen (Auto) 0.2 mg/dL 10/11/24 13:56 Leukocyte Esterase (Auto) 0 Chuy/uL 10/11/24 13:56 Assessment & Plan Assessment & Plan (1) Low libido: Code(s): R68.82 - Decreased libido Category: Medical (2) Erectile dysfunction: Code(s): N52.9 - Male erectile dysfunction, unspecified Category: Medical (3) Lower urinary tract symptoms: Code(s): R39.9 - Unspecified symptoms and signs involving the genitourinary system Category: Medical (4) Epididymal cyst: Code(s): N50.3 - Cyst of epididymis Category: Medical Plan Office urinalysis results with the patient today; as noted above. PVR 0 mL. Recent PSA results reviewed the patient today; as noted above. Reassurance provided regarding right epididymal head cyst He currently denies any bothersome urinary issues or concerns. He reports be happy with current voiding parameters. Will continue with surveillance monitoring. Continue Cialis low-dose daily as well as tamsulosin as prescribed. All questions were answered. Follow-up in 6 months; or sooner with any issues, concerns, and or questions. Orders: Orders AMB Urinalysis Automated Today Z13.9 - Encounter for screening, unspecified US scrotum Today N43.3 - Hydrocele, unspecified AMB Urinalysis Automated Today Z13.9 - Encounter for screening, unspecified Patient Instructions: The patient had an opportunity to ask questions regarding the treatment plan. All questions were answered. Physical exam, labs, and imaging were discussed and reviewed in detail. As well as risks, benefits, and discussion of treatment choices. No major barriers to understanding were identified. The patient expressed understanding and agreement with the above treatment plan. The patient was made aware they should contact our office by phone for worsening of their current condition, the appearance of new symptoms, or with any questions or concerns. Compliance is encouraged with any medications and follow up testing that is ordered. It is a privilege to be allowed the opportunity to participate in? your urological care.? Again, if you have any questions or concerns If you have any questions or concerns please do not hesitate to contact me. The office is [phone]. This note is constructed using voice recognition software. While every effort has been made to ensure accuracy separator operator errors may have been included. Yours sincerely, JESSE Petersen Coding Level of Care Code Est Pt Level 3 (04558) Complex EM visit Add On G2211 Diagnoses Low libido R68.82 Erectile dysfunction N52.9 Lower urinary tract symptoms R39.9 Epididymal cyst N50.3 CPT Codes Post Residual Void - PVR CPT Code: [id number] Void Residual by ultrasound ([id number])
--- OUTSIDE RECORDS SUMMARY | 2024-10-11 13:53 | XMS_ITS ---
Author Name [facility] Organization Unknown Care Team Organization Name Specialty Phone Email Start Date End Da te [facility] Janelle Tomas MD Primary Care 03/17/2022 10/26/2023
--- OUTSIDE RECORDS SUMMARY | 2024-10-11 13:53 | XMS_ITS | Encounter Summary ---
Author Organization [facility] Address [address] [place] [address] Care Team Providers Care Human Capital Consultant Name Role Phone Wu Underwood MD Primary Care Provider [phone] Encounter Details Date Type Department Care Team ([facility] st Contact Info) Description 09/26/2024 Telephone Internal Medicine - [place] [address] [place] [id number] Wu Underwood MD [address] [address] [place] [address] Social History Tobacco Use Types Packs/Day Years Used Date Smoking Tobacco: Former Cigarettes 0.8 20 0 03/09/1994 - 03/09/2014 Smokeless Tobacco: Never Alcohol Use Standard Drinks/Week Comments No 0 (1 standard drink = 0.6 oz pur e alcohol) Housing Instability Answer Date Recorde d Are you worried that in the next 2 months you may not have stable housing? No 08/03/2024 Food Access & Nutrition Answer Date Rec orded Do you have access to a vari ety of food including fruits and vegetables? Yes 08/03/2024 Access to Healthcare Answer Date Record ed Within the last 3 months, ho martha many times did you visit the emergency department for your medical care? 1 08/03/2024 Health Literacy Answer Date Recorded How often do you need to hav e someone help you when you read instructions, pamphlets, or other written material from your doctor or pharmacy? Sometimes 08/03/2024 Caregiver: How often do you need to have someone help you when you read instructions, pamphlets, or other written material from your doctor or pharmacy? Not on file 08/03/2024 Financial Risk Answer Date Recorded How hard is it for you to pa y for the very basics like food, housing, medical care, and air conditioning / heating? Not very hard 08/03/2024 Transportation Answer Date Recorded Has the lack of transportati on kept you from meetings, work, or from getting things needed for daily living? No Has the lack of transportati on kept you from medical appointments or from getting medications? No 08/03/2024 Social Isolation Answer Date Recorded How often do you feel lonely or isolated from th ose around you? Never 08/03/2024 Food Risk Answer Date Recorded Within the past 12 months we worried whether our food would run out before we got money to buy more. Never true 08/03/2024 Within the past 12 months th e food we bought just didn't last and we didn't have money to get more. Never true 08/03/2024 Dependent Care Answer Date Recorded Do you need help finding or paying for care for your loved ones. For example, teacher early childhood development or elderly care for an older adult? No 08/03/2024 Education Answer Date Recorded Do you think completing more education or training, like finishing a GED, going to college, or learning a trade, would be helpful for you? N/A 08/03/2024 Employment and Income Answer Date Recor ded During the last four weeks, have you been actively looking for work? No 08/03/2024 Living Situation Answer Date Recorded What is your living situation? 0 08/03/2024 Sex and Gender Information Value Date Recorded Sex Assigned at Not on file Legal Sex Male 2:16 PM EST Gender Identity Not on file Sexual Orientation Not on file documented as of this encounter Ordered Prescriptions Prescription Sig Dispense Quantity Refills Last Filled Start Date End Date thiamine 100 mg tablet Take 1 tablet (100 mg total) by mouth 1 (one) time each day. 90 tablet 1 09/27/2024 documented in this encounter Plan of Treatment Upcoming Encounters Date Type Department Care Team ([facility] Contact Info) Description 10/21/2024 12:00 PM EDT Office Visit Internal Medicine - [address] [place] [address] Wu Underwood MD [address] [address] documented as of this encounter Visit Diagnoses Not on filedocumented in this encounter Discontinued Medications Medication Sig Discontinue Reason Start Date End Da te thiamine 100 mg tablet Take 1 tablet (100 mg total) by mouth 1 (one) time each day. Reorder 08/02/2024 09/26/2024 documented as of this encounter Care Teams Human Capital Consultant Relationship Specialty Start Date End Date Wu Underwood MD [address] [address] PCP - General 12/17/23 documented as of this encounter
== END 2024-10-11 14:15 | disposition home or self-care (01) ==
LOC: HO.HUSH 13:15
PROVIDERS: Visit Provider Nurse Practitioner Family
DX: R68.82 Decreased libido (principal); N52.9 Male erectile dysfunction, unspecified; R39.9 Unspecified symptoms and signs involving the genitourinary system; N50.3 Cyst of epididymis; Z13.9 Encounter for screening, unspecified
CPT/HCPCS: 99213; G2211

== ENCOUNTER → 2024-10-11 13:15 | Outpatient (BNVA) | payer MEDICARE, SELFPAY | PROVIDERS: Visit Provider Nurse Practitioner Family | DX: R68.82 Decreased libido (principal); N52.9 Male erectile dysfunction, unspecified; R39.9 Unspecified symptoms and signs involving the genitourinary system; N50.3 Cyst of epididymis | CPT/HCPCS: 51798; 81003; 99212 ==